=== PATIENT | female | born 1990 | race Caucasian/White ===

== ENCOUNTER → 2019-08-16 | Outpatient (CLI) | payer OTHER ==
[2019-08-16 12:00] LABS: BASOPHILS ABSOLUTE AUTO 0.06 K/mm3 (0.00-0.23); BASOPHILS PERCENT AUTO 1 % (0-2); EOSINOPHILS ABSOLUTE AUTO 0.16 K/mm3 (0.00-0.68); EOSINOPHILS PERCENT AUTO 1 % (0-6); Hemoglobin 14.4 g/dL (11.5-16.0); IMMATURE GRAN ABSOLUTE AUTO 0.05 K/mm3 (0.00-0.10); IMMATURE GRAN PERCENT AUTO 0 % (0-1); LYMPHOCYTES ABSOLUTE AUTO 3.64 K/mm3 (0.84-5.20); LYMPHOCYTES PERCENT AUTO 30 % (21-46); MONOCYTES ABSOLUTE AUTO 0.58 K/mm3 (0.16-1.47); MONOCYTES PERCENT AUTO 5 % (4-13); Mean Corpuscular HGB 29.8 pg (26.0-34.0); Mean Corpuscular HGB Conc 34.3 g/dL (31.5-36.5); Mean Corpuscular Volume 87 fL (80-100); Mean Platelet Volume 10.7 fL (9.1-12.4); NEUTROPHILS ABSOLUTE AUTO 7.51 K/mm3 (1.96-9.15); NEUTROPHILS PERCENT AUTO 63 % (41-73); Platelet Count 370 K/mm3 (150-400); RDW Coefficient Variation 12.3 % (11.7-14.2); RDW Standard Deviation 38.9 fL (35.1-46.3); Red Blood Cell Count 4.83 M/mm3 (3.80-5.20)
[2019-08-16 12:04] LABS: Anion Gap 9 mmol/L (6-16); Blood Urea Nitrogen 14 mg/dL (8-24); Bun/Creatinine Ratio 17.9 (12.0-20.0); CO2, Blood 27 mmol/L (21-32); Calcium, Blood 9.7 mg/dL (8.5-10.1); Chloride, Blood 98 mmol/L (98-108); Creatinine, Blood 0.78 mg/dL (0.40-1.00); Glomerular Filtration Rate >60 (60-); Glucose, Blood 318 mg/dL (70-99); Sodium, Blood 134 mmol/L (136-145)
== END | disposition home or self-care (01) ==
LOC: LAB EV 11:56 → LAB SHORT 11:56
PROVIDERS: Family Medicine
DX: R07.81 Pleurodynia (principal)
CPT/HCPCS: 80048; 85025; 85379

== ENCOUNTER 2019-09-06 04:05 | Emergency (ER) | payer OTHER ==
[~2019-09-06] VITALS: Ht 162.6 cm; Wt 81.7 kg
[2019-09-06] MEDS ORDERED: LEVSOD25 PO (04:27)
[2019-09-06] MEDS ORDERED: ATOR10 PO (04:28)
[2019-09-06] MEDS ORDERED: ARIP10 PO (04:28)
[2019-09-06] MEDS ORDERED: BUPR75 PO (04:28)
[2019-09-06] MEDS ORDERED: METF500 PO (04:28)
[2019-09-06] MEDS ORDERED: HYDHCL25 PO (04:29)
[2019-09-06] MEDS ORDERED: INSDET100 (04:30)
[2019-09-06] MEDS ORDERED: Esgic Tablet1 EACH PO (04:42)
[2019-09-06] MEDS ORDERED: PROM25 PO (04:42)
== END 2019-09-06 04:51 | disposition home or self-care (01) ==
LOC: ER 04:05
DX: G43.909 Migraine, unspecified, not intractable, without status migrainosus (principal); E11.9 Type 2 diabetes mellitus without complications; E03.9 Hypothyroidism, unspecified; F32.9 Major depressive disorder, single episode, unspecified; F41.9 Anxiety disorder, unspecified; F17.200 Nicotine dependence, unspecified, uncomplicated; Z79.899 Other long term (current) drug therapy; Z79.4 Long term (current) use of insulin
CPT/HCPCS: 99283

== ENCOUNTER 2019-12-13 16:02 | Emergency (ER) | payer OTHER ==
[~2019-12-13] VITALS: Ht 162.6 cm; Wt 81.7 kg
[~2019-12-13 16:02] MED LIST: ARIP10 PO; ATOR10 PO; BUPR75 PO; Esgic Tablet1 EACH PO; HYDHCL25 PO; LEVEMIR100 UNIT/1 SC; LEVSOD25 PO; METF500 PO; PROM25 PO
[2019-12-13 16:33] LABS: Source, Urine Clean Catch
[2019-12-13 16:39] LABS: Hemoglobin 15.4 g/dL (11.5-16.0); Mean Corpuscular HGB 30.7 pg (26.0-34.0); Mean Corpuscular HGB Conc 34.2 g/dL (31.5-36.5); Mean Corpuscular Volume 90 fL (80-100); Mean Platelet Volume 10.5 fL (9.1-12.4); Platelet Count 416 K/mm3 (150-400); RDW Standard Deviation 39.4 fL (35.1-46.3); Red Blood Cell Count 5.02 M/mm3 (3.80-5.20); White Blood Cell Count 16.66 K/mm3 (4.00-11.30)
[2019-12-13 16:40] LABS: Bilirubin, Urine Neg (Neg); Blood, Urine 1+ (Neg); Glucose Qualitative, Urine 4+ (Neg); Ketones, Urine 3+ (Neg); Leukocyte Esterase, Urine Neg (Neg); Nitrite, Urine Neg (Neg); Protein, Urine 2+ (Neg); Urobilinogen, Urine NORM (Normal)
[2019-12-13 16:42] LABS: Appearance, Urine Clear (Clear); Color, Urine Yellow (P-Yellow)
[2019-12-13 16:50] LABS: Bacteria Few /hpf; Mucus Mod (0-Heavy); Squamous Epithelial Cells Many /hpf (Few); White Blood Cells, Urine Not Seen /hpf (0-5)
[2019-12-13 16:59] LABS: Alanine Aminotransfer (ALT/SGP 35 U/L (12-78); Albumin, Blood 3.9 g/dL (3.4-5.0); Albumin/Globulin Ratio 0.9 (0.8-1.8); Alk Phos 107 U/L (50-136); Anion Gap 7 mmol/L (6-16); Aspartate Aminotrans (AST/SGOT 25 U/L (12-37); Bilirubin, Total 0.4 mg/dL (0.1-1.0); Blood Urea Nitrogen 13 mg/dL (8-24); Bun/Creatinine Ratio 20.2 (12.0-20.0); CO2, Blood 27 mmol/L (21-32); Calcium, Blood 9.2 mg/dL (8.5-10.1); Chloride, Blood 97 mmol/L (98-108); Creatinine, Blood 0.64 mg/dL (0.40-1.00); Globulin, Blood 4.5 g/dL (2.2-4.0); Glomerular Filtration Rate >60 (60-); Glucose, Blood 383 mg/dL (70-99); Potassium, Blood 3.3 mmol/L (3.5-5.5); Sodium, Blood 131 mmol/L (136-145); Total Protein, Blood 8.4 g/dL (6.4-8.2)
[2019-12-13 17:03] LABS: BAND PERCENT MAN 1 % (0-8); BASOPHILS PERCENT MAN 0 % (0-2); EOSINOPHILS ABSOLUTE MAN 0.33 K/mm3 (0.00-0.68); EOSINOPHILS PERCENT MAN 2 % (0-6); LYMPHOCYTES ABSOLUTE MAN 4.99 K/mm3 (0.84-5.20); LYMPHOCYTES PERCENT MAN 30 % (21-46); MONOCYTES ABSOLUTE MAN 0.33 K/mm3 (0.16-1.47); MONOCYTES PERCENT MAN 2 % (4-13); NEUTROPHILS ABSOLUTE MAN 10.99 K/mm3 (1.96-9.15); SEG NEUTROPHILS PERCENT MAN 65 % (41-73); TOTAL CELLS COUNTED 100
[2019-12-13] MEDS ORDERED: HUMALOG KW100 UNIT/1 SC (18:33)
[2019-12-13] MEDS ORDERED: ONDA4ODT MM (20:15)
== END 2019-12-13 20:22 | disposition home or self-care (01) ==
LOC: ER 16:02
PROVIDERS: Physician Assistant
DX: E11.65 Type 2 diabetes mellitus with hyperglycemia (principal); Z88.5 Allergy status to narcotic agent; Z79.4 Long term (current) use of insulin; Z79.899 Other long term (current) drug therapy; E03.9 Hypothyroidism, unspecified; E78.00 Pure hypercholesterolemia, unspecified; F32.9 Major depressive disorder, single episode, unspecified; F41.9 Anxiety disorder, unspecified; F17.290 Nicotine dependence, other tobacco product, uncomplicated
CPT/HCPCS: 36415; 80053; 81001; 81025; 83690; 85025; 96374; 99284-25; J2405

== ENCOUNTER 2020-01-25 15:46 | Emergency (ER) | payer OTHER ==
[~2020-01-25] VITALS: Ht 162.6 cm; Wt 81.7 kg
[~2020-01-25 15:46] MED LIST changes: +HUMALOG KW100 UNIT/1 SC; +ONDA4ODT MM
[2020-01-25 16:22] LABS: BASOPHILS ABSOLUTE AUTO 0.09 K/mm3 (0.00-0.23); BASOPHILS PERCENT AUTO 1 % (0-2); EOSINOPHILS PERCENT AUTO 1 % (0-6); Hemoglobin 15.3 g/dL (11.5-16.0); IMMATURE GRAN ABSOLUTE AUTO 0.06 K/mm3 (0.00-0.10); IMMATURE GRAN PERCENT AUTO 0 % (0-1); LYMPHOCYTES ABSOLUTE AUTO 3.94 K/mm3 (0.84-5.20); LYMPHOCYTES PERCENT AUTO 28 % (21-46); MONOCYTES ABSOLUTE AUTO 0.74 K/mm3 (0.16-1.47); MONOCYTES PERCENT AUTO 5 % (4-13); Mean Corpuscular HGB 30.7 pg (26.0-34.0); Mean Corpuscular Volume 90 fL (80-100); NEUTROPHILS ABSOLUTE AUTO 8.94 K/mm3 (1.96-9.15); NEUTROPHILS PERCENT AUTO 65 % (41-73); Platelet Count 351 K/mm3 (150-400); RDW Standard Deviation 39.4 fL (35.1-46.3); Red Blood Cell Count 4.98 M/mm3 (3.80-5.20); White Blood Cell Count 13.87 K/mm3 (4.00-11.30)
[2020-01-25 16:43] LABS: Beta-hydroxybutyrate 2.1 mg/dL (0.2-2.8)
[2020-01-25 16:45] LABS: Alanine Aminotransfer (ALT/SGP 34 U/L (12-78); Albumin, Blood 4.4 g/dL (3.4-5.0); Alk Phos 114 U/L (50-136); Anion Gap 7 mmol/L (6-16); Aspartate Aminotrans (AST/SGOT 15 U/L (12-37); Bilirubin, Total 0.4 mg/dL (0.1-1.0); Blood Urea Nitrogen 14 mg/dL (8-24); Bun/Creatinine Ratio 20.3 (12.0-20.0); CO2, Blood 26 mmol/L (21-32); Calcium, Blood 10.1 mg/dL (8.5-10.1); Chloride, Blood 100 mmol/L (98-108); Creatinine, Blood 0.69 mg/dL (0.40-1.00); Globulin, Blood 4.5 g/dL (2.2-4.0); Glomerular Filtration Rate >60 (60-); Glucose, Blood 391 mg/dL (70-99); Sodium, Blood 133 mmol/L (136-145); Total Protein, Blood 8.9 g/dL (6.4-8.2)
[2020-01-25] MEDS ORDERED: BUPROPION XL150 M1 PO (17:45)
== END 2020-01-25 18:31 | disposition left against medical advice (07) ==
LOC: ER 15:46
PROVIDERS: Physician Assistant
DX: E11.65 Type 2 diabetes mellitus with hyperglycemia (principal); E03.9 Hypothyroidism, unspecified; E78.00 Pure hypercholesterolemia, unspecified; F32.9 Major depressive disorder, single episode, unspecified; F41.9 Anxiety disorder, unspecified; F17.290 Nicotine dependence, other tobacco product, uncomplicated; Z53.20 Procedure and treatment not carried out because of patient's decision for unspecified reasons; Z79.4 Long term (current) use of insulin; Z88.5 Allergy status to narcotic agent; Z79.899 Other long term (current) drug therapy
CPT/HCPCS: 36415; 71046; 80053; 82010; 82947; 85025; 93005; 93010; 96361; 96374; 99285-25; J1815; J2405; J7030

== ENCOUNTER → 2020-01-31 | Outpatient (CLI) | payer OTHER ==
[~2020-01-31] MED LIST changes: +BUPROPION XL150 M1 PO
[2020-01-31 15:03] LABS: BASOPHILS ABSOLUTE AUTO 0.07 K/mm3 (0.00-0.23); BASOPHILS PERCENT AUTO 1 % (0-2); EOSINOPHILS ABSOLUTE AUTO 0.15 K/mm3 (0.00-0.68); EOSINOPHILS PERCENT AUTO 1 % (0-6); Hematocrit 42.7 % (33.0-51.0); Hemoglobin 14.8 g/dL (11.5-16.0); IMMATURE GRAN ABSOLUTE AUTO 0.04 K/mm3 (0.00-0.10); IMMATURE GRAN PERCENT AUTO 0 % (0-1); LYMPHOCYTES PERCENT AUTO 24 % (21-46); MONOCYTES ABSOLUTE AUTO 0.63 K/mm3 (0.16-1.47); MONOCYTES PERCENT AUTO 5 % (4-13); Mean Corpuscular HGB 30.9 pg (26.0-34.0); Mean Corpuscular HGB Conc 34.7 g/dL (31.5-36.5); Mean Corpuscular Volume 89 fL (80-100); NEUTROPHILS ABSOLUTE AUTO 7.91 K/mm3 (1.96-9.15); NEUTROPHILS PERCENT AUTO 68 % (41-73); Platelet Count 343 K/mm3 (150-400); RDW Coefficient Variation 12.3 % (11.7-14.2); RDW Standard Deviation 40.4 fL (35.1-46.3); Red Blood Cell Count 4.79 M/mm3 (3.80-5.20)
[2020-01-31 15:07] LABS: Anion Gap 10 mmol/L (6-16); Blood Urea Nitrogen 12 mg/dL (8-24); Bun/Creatinine Ratio 11.7 (12.0-20.0); CO2, Blood 26 mmol/L (21-32); Calcium, Blood 9.6 mg/dL (8.5-10.1); Chloride, Blood 93 mmol/L (98-108); Creatinine, Blood 1.03 mg/dL (0.40-1.00); Glomerular Filtration Rate >60 (60-); Glucose, Blood 435 mg/dL (70-99); Potassium, Blood 3.5 mmol/L (3.5-5.5); Sodium, Blood 129 mmol/L (136-145)
== END | disposition home or self-care (01) ==
LOC: LAB EV 14:57 → LAB SHORT 14:57
PROVIDERS: Family Medicine
DX: E11.65 Type 2 diabetes mellitus with hyperglycemia (principal)
CPT/HCPCS: 80048; 85025

== ENCOUNTER → 2020-02-29 | Outpatient (CLI) | payer OTHER ==
[2020-02-29 08:10] LABS: BASOPHILS ABSOLUTE AUTO 0.07 K/mm3 (0.00-0.23); BASOPHILS PERCENT AUTO 1 % (0-2); EOSINOPHILS ABSOLUTE AUTO 0.13 K/mm3 (0.00-0.68); EOSINOPHILS PERCENT AUTO 1 % (0-6); Hematocrit 42.4 % (33.0-51.0); Hemoglobin 14.6 g/dL (11.5-16.0); IMMATURE GRAN ABSOLUTE AUTO 0.08 K/mm3 (0.00-0.10); IMMATURE GRAN PERCENT AUTO 1 % (0-1); LYMPHOCYTES ABSOLUTE AUTO 2.91 K/mm3 (0.84-5.20); LYMPHOCYTES PERCENT AUTO 25 % (21-46); MONOCYTES ABSOLUTE AUTO 0.63 K/mm3 (0.16-1.47); MONOCYTES PERCENT AUTO 5 % (4-13); Mean Corpuscular HGB 30.8 pg (26.0-34.0); Mean Corpuscular HGB Conc 34.4 g/dL (31.5-36.5); Mean Corpuscular Volume 90 fL (80-100); Mean Platelet Volume 10.6 fL (9.1-12.4); NEUTROPHILS ABSOLUTE AUTO 7.97 K/mm3 (1.96-9.15); NEUTROPHILS PERCENT AUTO 68 % (41-73); Platelet Count 335 K/mm3 (150-400); RDW Coefficient Variation 12.5 % (11.7-14.2); RDW Standard Deviation 41.1 fL (35.1-46.3); Red Blood Cell Count 4.74 M/mm3 (3.80-5.20); White Blood Cell Count 11.79 K/mm3 (4.00-11.30)
[2020-02-29 08:21] LABS: Alanine Aminotransfer (ALT/SGP 31 U/L (12-78); Albumin, Blood 4.1 g/dL (3.4-5.0); Albumin/Globulin Ratio 0.9 (0.8-1.8); Alk Phos 127 U/L (40-126); Anion Gap 10 mmol/L (6-16); Aspartate Aminotrans (AST/SGOT 15 U/L (12-37); Bilirubin, Total 0.5 mg/dL (0.1-1.0); Blood Urea Nitrogen 13 mg/dL (8-24); Bun/Creatinine Ratio 13.3 (12.0-20.0); CO2, Blood 27 mmol/L (21-32); Calcium, Blood 9.1 mg/dL (8.5-10.1); Chloride, Blood 95 mmol/L (98-108); Creatinine, Blood 0.98 mg/dL (0.40-1.00); Globulin, Blood 4.5 g/dL (2.2-4.0); Glomerular Filtration Rate >60 (60-); Glucose, Blood 349 mg/dL (70-99); Potassium, Blood 4.2 mmol/L (3.5-5.5); Sodium, Blood 132 mmol/L (136-145); Total Protein, Blood 8.6 g/dL (6.4-8.2)
== END | disposition home or self-care (01) ==
LOC: LAB EV 08:06 → LAB SHORT 08:06
PROVIDERS: Physician Assistant Medical
DX: R10.84 Generalized abdominal pain (principal)
CPT/HCPCS: 80053; 85025

== ENCOUNTER 2020-04-16 09:28 | Emergency (ER) | payer OTHER ==
[~2020-04-16] VITALS: Ht 162.6 cm; Wt 86.2 kg
[2020-04-16 10:04] LABS: BASOPHILS ABSOLUTE AUTO 0.08 K/mm3 (0.00-0.23); BASOPHILS PERCENT AUTO 1 % (0-2); EOSINOPHILS ABSOLUTE AUTO 0.13 K/mm3 (0.00-0.68); EOSINOPHILS PERCENT AUTO 1 % (0-6); Hematocrit 45.3 % (33.0-51.0); IMMATURE GRAN ABSOLUTE AUTO 0.04 K/mm3 (0.00-0.10); IMMATURE GRAN PERCENT AUTO 0 % (0-1); LYMPHOCYTES ABSOLUTE AUTO 3.04 K/mm3 (0.84-5.20); LYMPHOCYTES PERCENT AUTO 26 % (21-46); MONOCYTES PERCENT AUTO 4 % (4-13); Mean Corpuscular HGB 30.7 pg (26.0-34.0); Mean Corpuscular HGB Conc 33.1 g/dL (31.5-36.5); Mean Corpuscular Volume 93 fL (80-100); Mean Platelet Volume 10.9 fL (9.1-12.4); NEUTROPHILS ABSOLUTE AUTO 7.78 K/mm3 (1.96-9.15); NEUTROPHILS PERCENT AUTO 67 % (41-73); Platelet Count 405 K/mm3 (150-400); RDW Coefficient Variation 12.1 % (11.7-14.2); RDW Standard Deviation 41.7 fL (35.1-46.3); Red Blood Cell Count 4.88 M/mm3 (3.80-5.20); White Blood Cell Count 11.57 K/mm3 (4.00-11.30)
[2020-04-16 10:15] LABS: Alanine Aminotransfer (ALT/SGP 27 U/L (12-78); Albumin, Blood 4.1 g/dL (3.4-5.0); Alk Phos 118 U/L (50-136); Anion Gap 9 mmol/L (6-16); Aspartate Aminotrans (AST/SGOT 19 U/L (12-37); Bilirubin, Total 0.2 mg/dL (0.1-1.0); Blood Urea Nitrogen 15 mg/dL (8-24); Bun/Creatinine Ratio 23.7 (12.0-20.0); CO2, Blood 23 mmol/L (21-32); Calcium, Blood 9.3 mg/dL (8.5-10.1); Chloride, Blood 102 mmol/L (98-108); Creatinine, Blood 0.63 mg/dL (0.40-1.00); Globulin, Blood 4.1 g/dL (2.2-4.0); Glomerular Filtration Rate >60 (60-); Glucose, Blood 434 mg/dL (70-99); Potassium, Blood 3.5 mmol/L (3.5-5.5); Sodium, Blood 134 mmol/L (136-145); Total Protein, Blood 8.2 g/dL (6.4-8.2)
[2020-04-16] MEDS ORDERED: METFORMIN HCL500 M3 PO (11:39)
[2020-04-16] MEDS ORDERED: LEVOTHYROXINE112 MCG PO (11:39)
[2020-04-16] MEDS ORDERED: ABILIFY5 MG PO (11:40)
== END 2020-04-16 12:15 | disposition home or self-care (01) ==
LOC: ER 09:28
PROVIDERS: Physician Assistant
DX: E11.65 Type 2 diabetes mellitus with hyperglycemia (principal); E03.9 Hypothyroidism, unspecified; E78.00 Pure hypercholesterolemia, unspecified; F32.9 Major depressive disorder, single episode, unspecified; F41.9 Anxiety disorder, unspecified; F17.290 Nicotine dependence, other tobacco product, uncomplicated; Z79.4 Long term (current) use of insulin; Z88.5 Allergy status to narcotic agent; Z79.899 Other long term (current) drug therapy
CPT/HCPCS: 36415; 80053; 81000; 81025; 82947; 85025; 96360; 96361; 99284-25; J7030

== ENCOUNTER 2020-05-14 07:42 | Emergency (ER) | payer OTHER ==
[~2020-05-14] VITALS: Ht 162.6 cm; Wt 86.2 kg
[~2020-05-14 07:42] MED LIST changes: +ABILIFY5 MG PO; +LEVOTHYROXINE112 MCG PO; +METFORMIN HCL500 M3 PO
[2020-05-14] MEDS ORDERED: LIDO700A20 TOP (09:06)
[2020-05-14] MEDS ORDERED: OXYC5 PO (09:06)
[2020-05-14] MEDS ORDERED: CYCL10 PO (09:06)
== END 2020-05-14 09:28 | disposition home or self-care (01) ==
LOC: ER 07:42
DX: M54.5 Low back pain (principal); E11.9 Type 2 diabetes mellitus without complications; E03.9 Hypothyroidism, unspecified; E78.00 Pure hypercholesterolemia, unspecified; F17.210 Nicotine dependence, cigarettes, uncomplicated; Z79.4 Long term (current) use of insulin; Z79.899 Other long term (current) drug therapy; X50.9XXA Other and unspecified overexertion or strenuous movements or postures, initial encounter; Y99.0 Civilian activity done for income or pay
CPT/HCPCS: 96372; 99283; A9270; J1885

== ENCOUNTER 2020-07-03 13:55 | Emergency (ER) | payer OTHER ==
[~2020-07-03] VITALS: Ht 162.6 cm; Wt 86.2 kg
[~2020-07-03 13:55] MED LIST changes: +CYCL10 PO; +LIDO700A20 TOP; +OXYC5 PO
[2020-07-03 15:40] LABS: Hematocrit 48.6 % (33.0-51.0); Hemoglobin 16.7 g/dL (11.5-16.0); Mean Corpuscular HGB 30.5 pg (26.0-34.0); Mean Corpuscular HGB Conc 34.4 g/dL (31.5-36.5); Mean Corpuscular Volume 89 fL (80-100); Mean Platelet Volume 10.9 fL (9.1-12.4); Platelet Count 384 K/mm3 (150-400); RDW Coefficient Variation 11.8 % (11.7-14.2); RDW Standard Deviation 38.5 fL (35.1-46.3); Red Blood Cell Count 5.47 M/mm3 (3.80-5.20); White Blood Cell Count 15.64 K/mm3 (4.00-11.30)
[2020-07-03 16:03] LABS: BASOPHILS PERCENT MAN 0 % (0-2); EOSINOPHILS ABSOLUTE MAN 0.46 K/mm3 (0.00-0.68); EOSINOPHILS PERCENT MAN 3 % (0-6); LYMPHOCYTES ABSOLUTE MAN 4.06 K/mm3 (0.84-5.20); LYMPHOCYTES PERCENT MAN 26 % (21-46); MONOCYTES ABSOLUTE MAN 0.31 K/mm3 (0.16-1.47); MONOCYTES PERCENT MAN 2 % (4-13); NEUTROPHILS ABSOLUTE MAN 10.79 K/mm3 (1.96-9.15); SEG NEUTROPHILS PERCENT MAN 69 % (41-73); TOTAL CELLS COUNTED 100
[2020-07-03 16:11] LABS: Alanine Aminotransfer (ALT/SGP 36 U/L (12-78); Albumin/Globulin Ratio 0.8 (0.8-1.8); Alk Phos 144 U/L (50-136); Anion Gap 8 mmol/L (6-16); Aspartate Aminotrans (AST/SGOT 24 U/L (12-37); Bilirubin, Total 0.3 mg/dL (0.1-1.0); Blood Urea Nitrogen 9 mg/dL (8-24); Bun/Creatinine Ratio 15.7 (12.0-20.0); CO2, Blood 26 mmol/L (21-32); Calcium, Blood 9.9 mg/dL (8.5-10.1); Chloride, Blood 102 mmol/L (98-108); Creatinine, Blood 0.58 mg/dL (0.40-1.00); Globulin, Blood 5.1 g/dL (2.2-4.0); Glomerular Filtration Rate >60 (60-); Glucose, Blood 312 mg/dL (70-99); Potassium, Blood 3.8 mmol/L (3.5-5.5); Sodium, Blood 136 mmol/L (136-145); Total Protein, Blood 9.1 g/dL (6.4-8.2)
[2020-07-03 16:42] LABS: Source, Urine Clean Catch
[2020-07-03 16:45] LABS: Appearance, Urine Clear (Clear); Bilirubin, Urine Neg (Neg); Blood, Urine Neg (Neg); Color, Urine Yellow (P-Yellow); Glucose Qualitative, Urine 4+ (Neg); Ketones, Urine Neg (Neg); Leukocyte Esterase, Urine Neg (Neg); Nitrite, Urine Neg (Neg); Protein, Urine Neg (Neg); Specific Gravity, Urine 1.015 (1.003-1.022); Urobilinogen, Urine NORM (Normal)
== END 2020-07-03 17:50 | disposition left against medical advice (07) ==
LOC: ER 13:55
PROVIDERS: Emergency Medicine; Physician Assistant
DX: E11.65 Type 2 diabetes mellitus with hyperglycemia (principal); Z79.4 Long term (current) use of insulin; Z53.21 Procedure and treatment not carried out due to patient leaving prior to being seen by health care provider; Z79.899 Other long term (current) drug therapy
CPT/HCPCS: 36415; 80053; 81003; 81025; 85025; 93005; 93010; 99283-25

== ENCOUNTER → 2023-08-29 | Outpatient (CLI) | payer OTHER | END | disposition home or self-care (01) | LOC: LAB EV 13:22 → LAB SHORT 13:22 | DX: E03.9 Hypothyroidism, unspecified (principal); E10.3599 Type 1 diabetes mellitus with proliferative diabetic retinopathy without macular edema, unspecified eye; R42 Dizziness and giddiness ==

== ENCOUNTER → 2023-10-15 | Outpatient (CLI) | payer OTHER ==
[2023-10-17 23:38] LABS: C. TRACHOMATIS BY TMA,THINPREP Negative (Negative); N. GONORRHOEAE BY TMA,THINPREP Negative (Negative); SPECIMEN SOURCE Vaginal
== END | disposition home or self-care (01) ==
LOC: LAB 10:37 → LAB SHORT 10:37
PROVIDERS: Advanced Practice Midwife
DX: Z01.419 Encounter for gynecological examination (general) (routine) without abnormal findings (principal); Z11.3 Encounter for screening for infections with a predominantly sexual mode of transmission
CPT/HCPCS: 87491; 87591

== ENCOUNTER → 2024-01-26 | Outpatient (CLI) | payer OTHER ==
[2024-01-26 12:06] LABS: BASOPHILS ABSOLUTE AUTO 0.11 K/mm3 (0.00-0.23); BASOPHILS PERCENT AUTO 1 % (0-2); EOSINOPHILS ABSOLUTE AUTO 0.32 K/mm3 (0.00-0.68); EOSINOPHILS PERCENT AUTO 4 % (0-6); Hematocrit 40.8 % (33.0-51.0); Hemoglobin 13.8 g/dL (11.5-16.0); IMMATURE GRAN ABSOLUTE AUTO 0.02 K/mm3 (0.00-0.10); IMMATURE GRAN PERCENT AUTO 0 % (0-1); LYMPHOCYTES ABSOLUTE AUTO 3.76 K/mm3 (0.84-5.20); LYMPHOCYTES PERCENT AUTO 41 % (21-46); MONOCYTES ABSOLUTE AUTO 0.48 K/mm3 (0.16-1.47); MONOCYTES PERCENT AUTO 5 % (4-13); Mean Corpuscular HGB 29.7 pg (26.0-34.0); Mean Corpuscular HGB Conc 33.8 g/dL (31.5-36.5); Mean Corpuscular Volume 88 fL (80-100); Mean Platelet Volume 11.3 fL (9.1-12.4); NEUTROPHILS ABSOLUTE AUTO 4.42 K/mm3 (1.96-9.15); NEUTROPHILS PERCENT AUTO 49 % (41-73); Platelet Count 355 K/mm3 (150-400); RDW Coefficient Variation 13.8 % (11.7-14.2); RDW Standard Deviation 43.9 fL (35.1-46.3); Red Blood Cell Count 4.64 M/mm3 (3.80-5.20); White Blood Cell Count 9.11 K/mm3 (4.00-11.30)
[2024-01-26 12:30] LABS: Alanine Aminotransfer (ALT/SGP 25 U/L (12-78); Albumin, Blood 3.7 g/dL (3.4-5.0); Albumin/Globulin Ratio 0.9 (0.8-1.8); Alk Phos 88 U/L (40-126); Anion Gap 15 mmol/L (3-11); Aspartate Aminotrans (AST/SGOT 26 U/L (12-37); Bilirubin, Total 0.3 mg/dL (0.1-1.0); Blood Urea Nitrogen 7 mg/dL (8-24); Bun/Creatinine Ratio 7.8 (12.0-20.0); CO2, Blood 28 mmol/L (21-32); Calcium, Blood 9.1 mg/dL (8.5-10.1); Chloride, Blood 98 mmol/L (98-108); Globulin, Blood 4.3 g/dL (2.2-4.0); Glomerular Filtration Rate 88 (60-); Glucose, Blood 238 mg/dL (70-99); Potassium, Blood 3.6 mmol/L (3.5-5.5); Sodium, Blood 137 mmol/L (136-145)
[2024-01-26 12:31] LABS: Thyroid Stimulating Hormone >100.000 uIU/mL (0.360-4.800)
== END ==
LOC: LAB SHORT 12:01 → LAB 12:01
PROVIDERS: Physician Assistant
DX: E10.65 Type 1 diabetes mellitus with hyperglycemia (principal); E06.3 Autoimmune thyroiditis
CPT/HCPCS: 80053; 82010; 83036; 84443; 85025

== ENCOUNTER → 2024-03-03 | Outpatient (CLI) | payer OTHER | LOC: LAB SHORT 15:10 → LAB 15:10 | DX: N39.0 Urinary tract infection, site not specified (principal) | CPT/HCPCS: 87077; 87086; 87186 ==

== ENCOUNTER 2024-04-08 18:37 | Inpatient (IN) | payer OTHER ==
[~2024-04-08] VITALS: Ht 162.6 cm; Wt 74.4 kg
[~2024-04-08 18:37] MED LIST changes: -ARIPIPRAZOLE10 M4 PO; -CEPH500 PO; -DESVENLAFAXINE50 M3 PO; -DIVA500EC PO; -VISBIOME 112.51 EACH PO
[2024-04-08] MEDS ORDERED: NS 1,000 ML IV SCH (19:00)
[2024-04-08] MEDS ORDERED: Ketorolac Tromethamine 30mg Vial IV ONE (19:35)
[2024-04-08 19:42] LABS: BASOPHILS ABSOLUTE AUTO 0.08 K/mm3 (0.00-0.23); BASOPHILS PERCENT AUTO 0 % (0-2); EOSINOPHILS ABSOLUTE AUTO 0.06 K/mm3 (0.00-0.68); EOSINOPHILS PERCENT AUTO 0 % (0-6); Hematocrit 30.5 % (33.0-51.0); Hemoglobin 10.4 g/dL (11.5-16.0); IMMATURE GRAN ABSOLUTE AUTO 0.09 K/mm3 (0.00-0.10); IMMATURE GRAN PERCENT AUTO 1 % (0-1); LYMPHOCYTES ABSOLUTE AUTO 3.18 K/mm3 (0.84-5.20); LYMPHOCYTES PERCENT AUTO 17 % (21-46); MONOCYTES PERCENT AUTO 9 % (4-13); Mean Corpuscular HGB 30.5 pg (26.0-34.0); Mean Corpuscular HGB Conc 34.1 g/dL (31.5-36.5); Mean Corpuscular Volume 89 fL (80-100); Mean Platelet Volume 10.9 fL (9.1-12.4); NEUTROPHILS ABSOLUTE AUTO 13.37 K/mm3 (1.96-9.15); NEUTROPHILS PERCENT AUTO 73 % (41-73); Platelet Count 362 K/mm3 (150-400); RDW Coefficient Variation 11.9 % (11.7-14.2); RDW Standard Deviation 38.9 fL (35.1-46.3); Red Blood Cell Count 3.41 M/mm3 (3.80-5.20); White Blood Cell Count 18.38 K/mm3 (4.00-11.30)
[2024-04-08 20:07] LABS: Albumin, Blood 2.6 g/dL (3.4-5.0); Albumin/Globulin Ratio 0.6 (0.8-1.8); Bilirubin, Total 0.5 mg/dL (0.1-1.0); Bun/Creatinine Ratio 13.7 (12.0-20.0); Calcium, Blood 7.9 mg/dL (8.5-10.1); Creatinine, Blood 0.66 mg/dL (0.40-1.00); Globulin, Blood 4.2 g/dL (2.2-4.0); Potassium, Blood 3.4 mmol/L (3.5-5.5); Total Protein, Blood 6.8 g/dL (6.4-8.2)
[2024-04-08] MEDS ORDERED: Ondansetron HCl 2 MG / ML 2ML Vial IV PRN (21:25)
[2024-04-08] MEDS ORDERED: Lactated Ringer's 1,000 ML IV SCH (21:25)
[2024-04-08] MEDS ORDERED: FLU VACC TS2024-25(6MOS UP)/PF 45 MCG/0.5 ML SYRINGE IM SCH (21:25)
[2024-04-08 21:34] LABS: Source, Urine Clean Catch
[2024-04-08 21:53] LABS: Bilirubin, Urine Neg (Neg); Blood, Urine 1+ (Neg); Glucose Qualitative, Urine 3+ (Neg); Ketones, Urine 3+ (Neg); Leukocyte Esterase, Urine Neg (Neg); Nitrite, Urine Neg (Neg); Protein, Urine 2+ (Neg); Urobilinogen, Urine NORM (Normal)
[2024-04-08 21:55] LABS: Appearance, Urine Clear (Clear); Color, Urine Yellow (P-Yellow)
[2024-04-08 21:56] LABS: Bacteria Mod /hpf; Red Blood Cells, Urine 0-2 /hpf (0-2); Squamous Epithelial Cells Many /hpf (Few)
[2024-04-08] MEDS ORDERED: CefTRIAXone Sodium 1,000 MG in NS 100 ML IV SCH (22:00)
[2024-04-08] MEDS ORDERED: Potassium Chloride 20 MEQ TabCR PO ONE (22:00)
[2024-04-08] MEDS ORDERED: ARIPIPRAZOLE10 M4 PO (22:07)
[2024-04-08 22:23] LABS: Hematocrit 28.1 % (33.0-51.0); Hemoglobin 9.7 g/dL (11.5-16.0)
[2024-04-09] VITALS (34 sets, daily range): BP systolic 81–106; BP diastolic 54–74
[2024-04-09] MEDS ORDERED: DESVENLAFAXINE50 M3 PO (05:03)
[2024-04-09] MEDS ORDERED: DIVA500EC PO (05:06)
[2024-04-09 05:44] LABS: Albumin, Blood 2.4 g/dL (3.4-5.0); Albumin/Globulin Ratio 0.6 (0.8-1.8); Bilirubin, Total 0.3 mg/dL (0.1-1.0); Bun/Creatinine Ratio 14.1 (12.0-20.0); Calcium, Blood 7.8 mg/dL (8.5-10.1); Creatinine, Blood 0.57 mg/dL (0.40-1.00); Potassium, Blood 3.7 mmol/L (3.5-5.5); Total Protein, Blood 6.4 g/dL (6.4-8.2)
[2024-04-09 05:51] LABS: BASOPHILS ABSOLUTE AUTO 0.06 K/mm3 (0.00-0.23); BASOPHILS PERCENT AUTO 0 % (0-2); EOSINOPHILS ABSOLUTE AUTO 0.15 K/mm3 (0.00-0.68); EOSINOPHILS PERCENT AUTO 1 % (0-6); Hematocrit 28.7 % (33.0-51.0); Hemoglobin 9.9 g/dL (11.5-16.0); IMMATURE GRAN ABSOLUTE AUTO 0.05 K/mm3 (0.00-0.10); IMMATURE GRAN PERCENT AUTO 0 % (0-1); LYMPHOCYTES ABSOLUTE AUTO 2.87 K/mm3 (0.84-5.20); LYMPHOCYTES PERCENT AUTO 20 % (21-46); MONOCYTES ABSOLUTE AUTO 1.27 K/mm3 (0.16-1.47); MONOCYTES PERCENT AUTO 9 % (4-13); Mean Corpuscular HGB 30.4 pg (26.0-34.0); Mean Corpuscular HGB Conc 34.5 g/dL (31.5-36.5); Mean Corpuscular Volume 88 fL (80-100); Mean Platelet Volume 11.3 fL (9.1-12.4); NEUTROPHILS ABSOLUTE AUTO 9.65 K/mm3 (1.96-9.15); NEUTROPHILS PERCENT AUTO 69 % (41-73); Platelet Count 301 K/mm3 (150-400); RDW Standard Deviation 38.5 fL (35.1-46.3); Red Blood Cell Count 3.26 M/mm3 (3.80-5.20); White Blood Cell Count 14.05 K/mm3 (4.00-11.30)
--- NOTE | 2024-04-09 06:44 | NUR ---
PT ADMITTED TO ROOM ICU 1 FROM ED ARRIVING AT 0434. PT WAS ABLE TO STAND FROM GURNEY AND PIVOT TRANSFER TO BED. PT DENIES VERTIGO. LEVOPHED RUNNING AT 2 MCG'S/MIN WHEREAS SHE MAINTAINS MAP > 65. PT HAS BEEN UP TO TOILET AND VOIDS CONCENTRATED STRONG ODOR URINE. PT GOOD HISTORIAN. WILL CONTINUE TO MONITOR PT, AND WILL REPORT OFF TO ONCOMING RN.
--- NOTE | 2024-04-09 07:21 | NUR ---
ASSUMED CARE OF PATIENT AT APPROXIMATELY 0700. REPORT RECEIVED FROM JENIFER STUBBS. PT ASLEEP IN BED. CONTINOUS CARDIAC MONITORING IN PLACE SHOWING SR. BP 98/66 WITH MAP OF 75, LEVOPHED INFUSING AT 2 MCG/MIN. ON RA WITH O2 SATURATION OF 100%. NO ACUTE NEEDS IDENTIFIED AT THIS TIME. SEE SHIFT ASSESSMENT FOR FULL DETAILS.
[2024-04-09] MEDS ORDERED: Insulin Human Lispro 100 Units/ML 3ML Syringe SC SCH (07:30)
[2024-04-09] MEDS ORDERED: Lactobacil 2-S.Thermo-Bifido 1 1 Cap PO SCH (09:00)
[2024-04-09] MEDS ORDERED: Enoxaparin 40 MG/0.4 ML SYR SC SCH (09:00)
[2024-04-09] MEDS ORDERED: Acetaminophen 325 MG TABLET PO PRN (09:35)
[2024-04-09] MEDS ORDERED: Ketorolac Tromethamine 30mg Vial IV PRN (09:40)
[2024-04-09] MEDS ORDERED: Nicotine 14 MG PATCH TOP SCH (12:00)
[2024-04-09] MEDS ORDERED: Cyclobenzaprine HCl 10 MG Tab PO PRN (13:50)
[2024-04-09] MEDS ORDERED: Lidocaine 4% 1 Patch TOP PRN (13:55)
--- NOTE | 2024-04-09 16:55 | NUR ---
SHIFT SUMMARY PT REMAINED ALERT AND ORIENTED X 4 T/O ENTIRETY OF SHIFT. ABLE TO FOLLOW COMMANDS, MAKE PURPOSEFUL MOVEMENTS, AND MAKE NEEDS KNOWN. AFEBRILE. REPORTED ONE EPISODE OF LLQ PAIN AT 07/12. MEDICATED PER EMAR WITH GOOD BENEFIT. CONTINOUS CARDIAC MONITORING IN PLACED SHOWED SR-STACH. LEVOPHED HAS BEEN ON SB SINCE 0800. BP STABLE WITH MAP > 65. ON RA WITH O2 SATURATION > 92%. NO BM THIS SHIFT. NO N/V. ATE MOST OF BREAKFAST BUT HAD DECREASED APPETITE WITH LUNCH + DINNER. AMBULATES INDEPENDENTLY TO TOILET IN ROOM. LR INCREASED TO 125mL/HR PER HOSPITALIST, INFUSING TO RAC. PIV TO LAC PATENT. MED NO TELE STATUS. WILL CONTINUE TO MONITOR AND REPORT TO ONCOMING RN.
--- NOTE | 2024-04-09 19:34 | NUR ---
ASSUMED CARE OF PT AT 1900. REPORT RECEIVED. PT MED FLOOR STATUS AND IS MADE AWARE THAT PLAN WILL BE TO TRY TO GET HER A ROOM ON MEDICAL FLOOR SOON WHICH HAS BEEN DONE. SHE WILL BE TRANSFERRED TO ROOM 310 WHEN RN AVAILABLE TO RECEIVE REPORT. PT AWARE AND IS IN AGREEMENT. PT IN NO APPARENT DISTRESS. STATES THAT SHE FEELS "SLEEPY". WILL REVIEW CHART AND PLAN OF CARE FOR THIS PT.
--- NOTE | 2024-04-09 20:13 | NUR ---
PT TRANSFERRED TO ROOM 310 VIA WC. PT PIVOT TRANSFERS TO BED. LEAVES ICU AT 1999. REPORT GIVEN.
[2024-04-09] MEDS ORDERED: Insulin Glargine-Yfgn 100 Unit/mL 3 ML SYR SC SCH (21:00)
[2024-04-09] MEDS ORDERED: NS 250 ML IV PRN (22:05)
[2024-04-10 03:29] VITALS: BP 109/60
--- NOTE | 2024-04-10 05:10 | NUR ---
SHIFT SUMMARY PT TRANSFERED FROM ICU ABOUT 1999. ORIENTED TO ROOM. A&Ox4 AND PLEASANT. PT MEDICATED FOR PAIN AND NAUSEA PER EMAR WITH GOOD EFFECT. LR INFUSING @ 125ML/HR. CONTINUING IV ABX PER EMAR. BP SOFT BUT MAP REMAINS >70. INDEPENDENT IN ROOM. BED IN LOWEST POSITION AND CALL LIGHT IN REACH.
[2024-04-10 05:12] LABS: BASOPHILS ABSOLUTE AUTO 0.04 K/mm3 (0.00-0.23); BASOPHILS PERCENT AUTO 1 % (0-2); EOSINOPHILS ABSOLUTE AUTO 0.21 K/mm3 (0.00-0.68); EOSINOPHILS PERCENT AUTO 3 % (0-6); Hematocrit 30.5 % (33.0-51.0); Hemoglobin 10.1 g/dL (11.5-16.0); IMMATURE GRAN ABSOLUTE AUTO 0.02 K/mm3 (0.00-0.10); IMMATURE GRAN PERCENT AUTO 0 % (0-1); LYMPHOCYTES ABSOLUTE AUTO 2.02 K/mm3 (0.84-5.20); LYMPHOCYTES PERCENT AUTO 24 % (21-46); MONOCYTES PERCENT AUTO 7 % (4-13); Mean Corpuscular HGB 29.7 pg (26.0-34.0); Mean Corpuscular HGB Conc 33.1 g/dL (31.5-36.5); Mean Corpuscular Volume 90 fL (80-100); Mean Platelet Volume 10.9 fL (9.1-12.4); NEUTROPHILS ABSOLUTE AUTO 5.67 K/mm3 (1.96-9.15); NEUTROPHILS PERCENT AUTO 66 % (41-73); Platelet Count 337 K/mm3 (150-400); RDW Coefficient Variation 12.1 % (11.7-14.2); RDW Standard Deviation 39.7 fL (35.1-46.3); White Blood Cell Count 8.56 K/mm3 (4.00-11.30)
[2024-04-10 05:47] LABS: Bun/Creatinine Ratio 5.8 (12.0-20.0); Calcium, Blood 8.6 mg/dL (8.5-10.1); Creatinine, Blood 0.52 mg/dL (0.40-1.00); Potassium, Blood 3.5 mmol/L (3.5-5.5)
[2024-04-10] MEDS ORDERED: Levothyroxine Sodium 0.112 MG Tab PO SCH (06:00)
[2024-04-10 07:22] VITALS: BP 98/66
[2024-04-10] MEDS ORDERED: Venlafaxine HCl 75 MG CapCR PO SCH (09:00)
[2024-04-10] MEDS ORDERED: Divalproex Sodium 500 MG TABLET.DR PO SCH (09:00)
[2024-04-10] MEDS ORDERED: ARIPiprazole 10 MG Tab PO SCH (09:00)
[2024-04-10] MEDS ORDERED: ONDA4ODT MM (12:47)
[2024-04-10] MEDS ORDERED: CEPH500 PO (12:48)
[2024-04-10] MEDS ORDERED: VISBIOME 112.51 EACH PO (12:49)
--- NOTE | 2024-04-10 14:01 | NUR ---
1315 PATIENT DISCAHRGED HOME, REPORT TO PATIENT AND FRIEND, BOTH STATED UNDERSTANDING AND FOLLOW UP NEEDS, BOTH DENIED FURTHER QUESTIONS
== END 2024-04-10 13:31 | disposition home or self-care (01) | DRG 871 ==
LOC: ER 18:37 → ERHOLD 21:21 → ICUE 21:21 → MEDS 04-09 20:04
PROVIDERS: Family Medicine; Nurse Practitioner Acute Care; Physician Assistant; ADMIT Internal Medicine
PROC: 3E033XZ Introduction of Vasopressor into Peripheral Vein, Percutaneous Approach (ICD-10-PCS; principal; 2024-04-08)
PROC: 3E03329 Introduction of Other Anti-infective into Peripheral Vein, Percutaneous Approach (ICD-10-PCS; 2024-04-08)
DX: A41.9 Sepsis, unspecified organism (principal); R65.21 Severe sepsis with septic shock; N10 Acute pyelonephritis; E87.6 Hypokalemia; E11.9 Type 2 diabetes mellitus without complications; F41.9 Anxiety disorder, unspecified; E03.9 Hypothyroidism, unspecified; I10 Essential (primary) hypertension; D64.9 Anemia, unspecified; Z88.8 Allergy status to other drugs, medicaments and biological substances; F17.290 Nicotine dependence, other tobacco product, uncomplicated; F32.A Depression, unspecified; E78.00 Pure hypercholesterolemia, unspecified; Z90.49 Acquired absence of other specified parts of digestive tract; Z98.890 Other specified postprocedural states; R10.13 Epigastric pain; R00.0 Tachycardia, unspecified
CPT/HCPCS: 36415; 74177; 80048; 80053; 81001; 82947; 83605; 83690; 84484; 84703; 85014; 85018; 85025; 87040; 87086; 96361; 96374-59; 96375; 99285-25; A9270; J0696; J1650; J1815; J1885; J2405; J7030; J7050; J7060; J7120; Q9967

== ENCOUNTER → 2024-04-08 | Outpatient (CLI) | payer OTHER ==
[~2024-04-08] MED LIST changes: +ARIPIPRAZOLE10 M4 PO; +CEPH500 PO; +DESVENLAFAXINE50 M3 PO; +DIVA500EC PO; +VISBIOME 112.51 EACH PO
[2024-04-08 15:08] LABS: BASOPHILS ABSOLUTE AUTO 0.11 K/mm3 (0.00-0.23); BASOPHILS PERCENT AUTO 1 % (0-2); EOSINOPHILS ABSOLUTE AUTO 0.08 K/mm3 (0.00-0.68); EOSINOPHILS PERCENT AUTO 0 % (0-6); Hematocrit 39.5 % (33.0-51.0); Hemoglobin 13.4 g/dL (11.5-16.0); IMMATURE GRAN ABSOLUTE AUTO 0.11 K/mm3 (0.00-0.10); IMMATURE GRAN PERCENT AUTO 1 % (0-1); LYMPHOCYTES ABSOLUTE AUTO 4.17 K/mm3 (0.84-5.20); LYMPHOCYTES PERCENT AUTO 19 % (21-46); MONOCYTES ABSOLUTE AUTO 1.84 K/mm3 (0.16-1.47); MONOCYTES PERCENT AUTO 8 % (4-13); Mean Corpuscular HGB 29.7 pg (26.0-34.0); Mean Corpuscular HGB Conc 33.9 g/dL (31.5-36.5); Mean Corpuscular Volume 88 fL (80-100); Mean Platelet Volume 10.9 fL (9.1-12.4); NEUTROPHILS ABSOLUTE AUTO 15.54 K/mm3 (1.96-9.15); NEUTROPHILS PERCENT AUTO 71 % (41-73); Platelet Count 452 K/mm3 (150-400); RDW Coefficient Variation 11.9 % (11.7-14.2); RDW Standard Deviation 38.4 fL (35.1-46.3); Red Blood Cell Count 4.51 M/mm3 (3.80-5.20); White Blood Cell Count 21.85 K/mm3 (4.00-11.30)
[2024-04-08 15:20] LABS: Albumin, Blood 3.3 g/dL (3.4-5.0); Albumin/Globulin Ratio 0.6 (0.8-1.8); Bilirubin, Total 0.9 mg/dL (0.1-1.0); Bun/Creatinine Ratio 8.9 (12.0-20.0); Calcium, Blood 9.6 mg/dL (8.5-10.1); Creatinine, Blood 1.23 mg/dL (0.40-1.00); Globulin, Blood 5.3 g/dL (2.2-4.0); Potassium, Blood 3.4 mmol/L (3.5-5.5); Total Protein, Blood 8.6 g/dL (6.4-8.2)
== END | disposition home or self-care (01) ==
LOC: LAB 15:03 → LAB SHORT 15:03
PROVIDERS: Physician Assistant
DX: R10.13 Epigastric pain (principal); R00.0 Tachycardia, unspecified
CPT/HCPCS: 80053; 83690; 84484; 85025

== ENCOUNTER → 2024-04-17 | Outpatient (CLI) | payer OTHER ==
[~2024-04-17] MED LIST changes: +ARIPIPRAZOLE10 M4 PO; +CEPH500 PO; +DESVENLAFAXINE50 M3 PO; +DIVA500EC PO; +VISBIOME 112.51 EACH PO
[2024-04-17 13:47] LABS: BASOPHILS ABSOLUTE AUTO 0.06 K/mm3 (0.00-0.23); BASOPHILS PERCENT AUTO 1 % (0-2); EOSINOPHILS ABSOLUTE AUTO 0.29 K/mm3 (0.00-0.68); EOSINOPHILS PERCENT AUTO 3 % (0-6); Hematocrit 36.6 % (33.0-51.0); Hemoglobin 12.1 g/dL (11.5-16.0); IMMATURE GRAN ABSOLUTE AUTO 0.07 K/mm3 (0.00-0.10); IMMATURE GRAN PERCENT AUTO 1 % (0-1); LYMPHOCYTES ABSOLUTE AUTO 3.26 K/mm3 (0.84-5.20); LYMPHOCYTES PERCENT AUTO 32 % (21-46); MONOCYTES ABSOLUTE AUTO 0.64 K/mm3 (0.16-1.47); MONOCYTES PERCENT AUTO 6 % (4-13); Mean Corpuscular HGB 29.5 pg (26.0-34.0); Mean Corpuscular HGB Conc 33.1 g/dL (31.5-36.5); Mean Corpuscular Volume 89 fL (80-100); Mean Platelet Volume 9.7 fL (9.1-12.4); NEUTROPHILS ABSOLUTE AUTO 5.88 K/mm3 (1.96-9.15); NEUTROPHILS PERCENT AUTO 58 % (41-73); Platelet Count 635 K/mm3 (150-400); RDW Standard Deviation 38.5 fL (35.1-46.3)
[2024-04-17 13:55] LABS: Albumin/Globulin Ratio 0.6 (0.8-1.8); Bilirubin, Total 0.1 mg/dL (0.1-1.0); Bun/Creatinine Ratio 10.5 (12.0-20.0); Calcium, Blood 8.9 mg/dL (8.5-10.1); Creatinine, Blood 0.86 mg/dL (0.40-1.00); Globulin, Blood 4.8 g/dL (2.2-4.0); Potassium, Blood 3.8 mmol/L (3.5-5.5); Total Protein, Blood 7.8 g/dL (6.4-8.2)
== END | disposition home or self-care (01) ==
LOC: LAB 13:40 → LAB SHORT 13:40
PROVIDERS: Physician Assistant
DX: R11.2 Nausea with vomiting, unspecified (principal)
CPT/HCPCS: 80053; 85025

== ENCOUNTER → 2024-07-28 | Outpatient (CLI) | payer OTHER ==
[2024-07-29 11:37] LABS: Stool Occult Bld Immuno 1 Negative (NEGATIVE)
== END | disposition home or self-care (01) ==
LOC: LAB 14:12 → LAB SHORT 14:12
PROVIDERS: Physician Assistant
DX: R11.2 Nausea with vomiting, unspecified (principal)
CPT/HCPCS: G0328

== ENCOUNTER 2024-08-27 23:05 | Emergency (ER) | payer OTHER ==
[~2024-08-27] VITALS: Ht 162.6 cm; Wt 67.6 kg
[2024-08-27 23:37] LABS: BASOPHILS ABSOLUTE AUTO 0.13 K/mm3 (0.00-0.23); BASOPHILS PERCENT AUTO 1 % (0-2); EOSINOPHILS ABSOLUTE AUTO 0.75 K/mm3 (0.00-0.68); EOSINOPHILS PERCENT AUTO 4 % (0-6); Hematocrit 40.3 % (33.0-51.0); Hemoglobin 13.8 g/dL (11.5-16.0); IMMATURE GRAN ABSOLUTE AUTO 0.06 K/mm3 (0.00-0.10); IMMATURE GRAN PERCENT AUTO 0 % (0-1); LYMPHOCYTES ABSOLUTE AUTO 5.51 K/mm3 (0.84-5.20); LYMPHOCYTES PERCENT AUTO 28 % (21-46); MONOCYTES ABSOLUTE AUTO 1.31 K/mm3 (0.16-1.47); MONOCYTES PERCENT AUTO 7 % (4-13); Mean Corpuscular HGB 29.7 pg (26.0-34.0); Mean Corpuscular HGB Conc 34.2 g/dL (31.5-36.5); Mean Corpuscular Volume 87 fL (80-100); Mean Platelet Volume 10.7 fL (9.1-12.4); NEUTROPHILS ABSOLUTE AUTO 11.74 K/mm3 (1.96-9.15); NEUTROPHILS PERCENT AUTO 60 % (41-73); Platelet Count 560 K/mm3 (150-400); RDW Coefficient Variation 12.3 % (11.7-14.2); RDW Standard Deviation 38.8 fL (35.1-46.3); Red Blood Cell Count 4.65 M/mm3 (3.80-5.20)
[2024-08-27 23:55] LABS: Albumin/Globulin Ratio 0.9 (0.8-1.8); Bilirubin, Total 0.3 mg/dL (0.1-1.0); Bun/Creatinine Ratio 35.3 (12.0-20.0); Calcium, Blood 10.1 mg/dL (8.5-10.1); Creatinine, Blood 0.54 mg/dL (0.40-1.00); Globulin, Blood 4.4 g/dL (2.2-4.0); Potassium, Blood 3.8 mmol/L (3.5-5.5); Total Protein, Blood 8.4 g/dL (6.4-8.2)
[2024-08-28] MEDS ORDERED: Ondansetron HCl 2 MG / ML 2ML Vial ONE (01:50)
[2024-08-28] MEDS ORDERED: Ondansetron HCl 2 MG / ML 2ML Vial IV ONE (01:50)
[2024-08-28] MEDS ORDERED: Lactated Ringer's 1,000 ML IV ONE (02:25)
[2024-08-28] MEDS ORDERED: Morphine Sulfate 4 MG/1 ML Injection IV ONE (02:40)
[2024-08-28] MEDS ORDERED: Promethazine HCl 25 MG Tab PO ONE (02:45)
[2024-08-28 03:57] LABS: CORONAVIRUS COVID-19 AG Negative (NEGATIVE); INFLUENZA A AG Negative (NEGATIVE); INFLUENZA B AG Negative (NEGATIVE)
[2024-08-28] MEDS ORDERED: Droperidol 5 mg/2 ml Vial IV ONE (05:00)
[2024-08-28] MEDS ORDERED: Haloperidol Lactate Inj. 5 MG/ML Injection IV ONE (05:00)
[2024-08-28] MEDS ORDERED: NS 1,000 ML IV SCH (05:35)
[2024-08-28 09:06] LABS: Source, Urine Clean Catch
[2024-08-28 09:13] LABS: Appearance, Urine Clear (Clear); Bilirubin, Urine Neg (Neg); Blood, Urine Neg (Neg); Color, Urine Yellow (P-Yellow); Glucose Qualitative, Urine 3+ (Neg); Ketones, Urine 2+ (Neg); Leukocyte Esterase, Urine Neg (Neg); Nitrite, Urine Neg (Neg); Protein, Urine 2+ (Neg); Urobilinogen, Urine NORM (Normal)
[2024-08-28 09:22] LABS: Hyaline Casts 0-2 /lpf (0-2); Squamous Epithelial Cells Many /hpf (Few)
[2024-08-28 09:23] LABS: Bacteria Rare /hpf; Red Blood Cells, Urine Not Seen /hpf (0-2); White Blood Cells, Urine 0-2 /hpf (0-5)
[2024-08-28] MEDS ORDERED: ONDA4ODT MM (09:26)
[2024-08-28 09:50] VITALS: BP 95/64
[2024-08-29] MEDS ORDERED: ALOGLIPTIN25 M7 PO (11:38)
[2024-08-29] MEDS ORDERED: METFORMIN HCL500 M3 PO (11:38)
[2024-08-29] MEDS ORDERED: NEURONTIN300 MG PO (11:38)
[2024-08-29] MEDS ORDERED: STEGLATRO5 MG PO (11:39)
[2024-08-29] MEDS ORDERED: Protonix40 MG PO (12:44)
[2024-08-29] MEDS ORDERED: SUCR1 PO (12:44)
== END 2024-08-28 09:54 | disposition home or self-care (01) ==
LOC: ER 23:05
PROVIDERS: Student in an Organized Health Care Education/Training Program
DX: K52.9 Noninfective gastroenteritis and colitis, unspecified (principal); E11.9 Type 2 diabetes mellitus without complications; Z79.4 Long term (current) use of insulin; Z79.2 Long term (current) use of antibiotics; I10 Essential (primary) hypertension; F17.210 Nicotine dependence, cigarettes, uncomplicated
CPT/HCPCS: 71046; 74177; 80053; 81001; 83605; 83690; 84484; 84703; 85025; 87428-QW; 93005; 93010; 96361; 96374-59; 96375; 99285-25; A9270; J1630; J1790; J2270; J2405; J7030; J7120; Q9967

== ENCOUNTER 2024-08-29 09:17 | Emergency (ER) | payer OTHER ==
[~2024-08-29] VITALS: Ht 162.6 cm; Wt 63.5 kg
[2024-08-29 09:51] VITALS: BP 84/70
[2024-08-29] MEDS ORDERED: FentaNYL Citrate 50 MCG/ML 2 ML Injection IV ONE (09:55)
[2024-08-29] MEDS ORDERED: Haloperidol Lactate Inj. 5 MG/ML Injection IV ONE (09:55)
[2024-08-29] MEDS ORDERED: NS 1,000 ML IV SCH (09:55)
[2024-08-29] MEDS ORDERED: Metoclopramide HCl 5MG / ML 2ML Vial IV ONE (10:00)
[2024-08-29 10:40] LABS: BASOPHILS ABSOLUTE AUTO 0.12 K/mm3 (0.00-0.23); BASOPHILS PERCENT AUTO 1 % (0-2); EOSINOPHILS ABSOLUTE AUTO 0.81 K/mm3 (0.00-0.68); EOSINOPHILS PERCENT AUTO 6 % (0-6); Hematocrit 36.6 % (33.0-51.0); Hemoglobin 12.2 g/dL (11.5-16.0); IMMATURE GRAN ABSOLUTE AUTO 0.03 K/mm3 (0.00-0.10); IMMATURE GRAN PERCENT AUTO 0 % (0-1); LYMPHOCYTES ABSOLUTE AUTO 4.55 K/mm3 (0.84-5.20); LYMPHOCYTES PERCENT AUTO 32 % (21-46); MONOCYTES ABSOLUTE AUTO 0.91 K/mm3 (0.16-1.47); MONOCYTES PERCENT AUTO 6 % (4-13); Mean Corpuscular HGB 28.9 pg (26.0-34.0); Mean Corpuscular HGB Conc 33.3 g/dL (31.5-36.5); Mean Corpuscular Volume 87 fL (80-100); Mean Platelet Volume 10.4 fL (9.1-12.4); NEUTROPHILS ABSOLUTE AUTO 7.96 K/mm3 (1.96-9.15); NEUTROPHILS PERCENT AUTO 56 % (41-73); Platelet Count 465 K/mm3 (150-400); RDW Coefficient Variation 12.1 % (11.7-14.2); RDW Standard Deviation 38.3 fL (35.1-46.3); Red Blood Cell Count 4.22 M/mm3 (3.80-5.20); White Blood Cell Count 14.38 K/mm3 (4.00-11.30)
[2024-08-29 11:02] LABS: Albumin, Blood 3.7 g/dL (3.4-5.0); Bilirubin, Total 0.4 mg/dL (0.1-1.0); Calcium, Blood 9.1 mg/dL (8.5-10.1); Creatinine, Blood 0.5 mg/dL (0.40-1.00); Globulin, Blood 3.8 g/dL (2.2-4.0); Magnesium, Blood 1.7 mg/dL (1.6-2.4); Potassium, Blood 3.6 mmol/L (3.5-5.5); Total Protein, Blood 7.5 g/dL (6.4-8.2)
[2024-08-29] MEDS ORDERED: Sucralfate 1000MG / 10ML UD BTL PO ONE (11:35)
[2024-08-29] MEDS ORDERED: Pantoprazole Sodium 40 MG Injection IV ONE (11:35)
[2024-08-29] MEDS ORDERED: METFORMIN HCL500 M3 PO (11:38)
[2024-08-29] MEDS ORDERED: NEURONTIN300 MG PO (11:38)
[2024-08-29] MEDS ORDERED: ALOGLIPTIN25 M7 PO (11:38)
[2024-08-29] MEDS ORDERED: STEGLATRO5 MG PO (11:39)
[2024-08-29] MEDS ORDERED: SUCR1 PO (12:44)
[2024-08-29] MEDS ORDERED: Protonix40 MG PO (12:44)
== END 2024-08-29 13:06 | disposition home or self-care (01) ==
LOC: ER 09:17
PROVIDERS: Emergency Medicine
DX: R10.13 Epigastric pain (principal); R11.2 Nausea with vomiting, unspecified; I10 Essential (primary) hypertension; E03.9 Hypothyroidism, unspecified; E11.9 Type 2 diabetes mellitus without complications; F17.210 Nicotine dependence, cigarettes, uncomplicated; Z88.5 Allergy status to narcotic agent; Z79.890 Hormone replacement therapy; Z79.4 Long term (current) use of insulin
CPT/HCPCS: 80053; 83690; 83735; 84703; 85025; 96361; 96374; 96375; 99284-25; A9270; J2470; J2765; J3010; J7030

== ENCOUNTER → 2024-09-18 | Outpatient (CLI) | payer OTHER ==
[~2024-09-18] MED LIST changes: +ALOGLIPTIN25 M7 PO; +NEURONTIN300 MG PO; +Protonix40 MG PO; +STEGLATRO5 MG PO; +SUCR1 PO
[2024-09-18 10:23] LABS: Hematocrit 43.2 % (33.0-51.0); Mean Corpuscular HGB 29.2 pg (26.0-34.0); Mean Corpuscular HGB Conc 34.7 g/dL (31.5-36.5); Mean Corpuscular Volume 84 fL (80-100); Mean Platelet Volume 10.4 fL (9.1-12.4); Platelet Count 629 K/mm3 (150-400); RDW Coefficient Variation 12.8 % (11.7-14.2); Red Blood Cell Count 5.14 M/mm3 (3.80-5.20); White Blood Cell Count 16.05 K/mm3 (4.00-11.30)
[2024-09-18 10:36] LABS: Albumin, Blood 3.8 g/dL (3.4-5.0); Albumin/Globulin Ratio 0.8 (0.8-1.8); Bilirubin, Total 0.3 mg/dL (0.1-1.0); Calcium, Blood 9.7 mg/dL (8.5-10.1); Creatinine, Blood 0.57 mg/dL (0.40-1.00); Globulin, Blood 4.8 g/dL (2.2-4.0); Potassium, Blood 4.1 mmol/L (3.5-5.5); Total Protein, Blood 8.6 g/dL (6.4-8.2)
[2024-09-18 10:40] LABS: BASOPHILS ABSOLUTE MAN 0.32 K/mm3 (0.00-0.23); BASOPHILS PERCENT MAN 2 % (0-2); EOSINOPHILS ABSOLUTE MAN 0.96 K/mm3 (0.00-0.68); EOSINOPHILS PERCENT MAN 6 % (0-6); LYMPHOCYTES ABSOLUTE MAN 5.77 K/mm3 (0.84-5.20); LYMPHOCYTES PERCENT MAN 36 % (21-46); MONOCYTES ABSOLUTE MAN 1.12 K/mm3 (0.16-1.47); MONOCYTES PERCENT MAN 7 % (4-13); NEUTROPHILS ABSOLUTE MAN 7.86 K/mm3 (1.96-9.15); SEG NEUTROPHILS PERCENT MAN 49 % (41-73); TOTAL CELLS COUNTED 100
== END ==
LOC: LAB 09:55 → LAB SHORT 09:55
PROVIDERS: Emergency Medicine
DX: R11.2 Nausea with vomiting, unspecified (principal); E10.69 Type 1 diabetes mellitus with other specified complication
CPT/HCPCS: 80053; 83036; 83690; 85025

== ENCOUNTER → 2024-11-15 | Outpatient (CLI) | payer OTHER ==
[2024-11-15 12:52] LABS: BASOPHILS ABSOLUTE AUTO 0.10 K/mm3 (0.00-0.23); BASOPHILS PERCENT AUTO 1 % (0-2); EOSINOPHILS ABSOLUTE AUTO 0.60 K/mm3 (0.00-0.68); EOSINOPHILS PERCENT AUTO 4 % (0-6); Hematocrit 44.2 % (33.0-51.0); Hemoglobin 15.2 g/dL (11.5-16.0); IMMATURE GRAN ABSOLUTE AUTO 0.04 K/mm3 (0.00-0.10); IMMATURE GRAN PERCENT AUTO 0 % (0-1); LYMPHOCYTES ABSOLUTE AUTO 5.13 K/mm3 (0.84-5.20); LYMPHOCYTES PERCENT AUTO 36 % (21-46); MONOCYTES ABSOLUTE AUTO 0.58 K/mm3 (0.16-1.47); MONOCYTES PERCENT AUTO 4 % (4-13); Mean Corpuscular HGB Conc 34.4 g/dL (31.5-36.5); Mean Corpuscular Volume 88 fL (80-100); NEUTROPHILS ABSOLUTE AUTO 7.72 K/mm3 (1.96-9.15); NEUTROPHILS PERCENT AUTO 55 % (41-73); NRBC ABSOLUTE 0.00 K/mm3 (0.00-0.02); NRBC Auto 0.0 /100 WBC (0.0-0.2); Platelet Count 433 K/mm3 (150-400); RDW Coefficient Variation 13.6 % (11.7-14.2); RDW Standard Deviation 43.9 fL (35.1-46.3)
[2024-11-15 13:01] LABS: Alanine Aminotransfer (ALT/SGP 33.0 U/L (12-78); Albumin, Blood 4.4 g/dL (3.4-5.0); Albumin/Globulin Ratio 1.0 (0.8-1.8); Anion Gap 18.0 mmol/L (3-11); Aspartate Aminotrans (AST/SGOT 35.0 U/L (12-37); Bilirubin, Total 0.7 mg/dL (0.1-1.0); Blood Urea Nitrogen 13.0 mg/dL (8-24); CO2, Blood 24.0 mmol/L (21-32); Calcium, Blood 9.4 mg/dL (8.5-10.1); Chloride, Blood 95.0 mmol/L (98-108); Creatinine, Blood 0.8 mg/dL (0.40-1.00); Globulin, Blood 4.2 g/dL (2.2-4.0); Glucose, Blood 69.0 mg/dL (70-99); Potassium, Blood 3.6 mmol/L (3.5-5.5); Sodium, Blood 133.0 mmol/L (136-145); Total Protein, Blood 8.6 g/dL (6.4-8.2)
== END ==
LOC: LAB SHORT 12:43 → LAB 12:43
PROVIDERS: Physician Assistant Medical
DX: R11.2 Nausea with vomiting, unspecified (principal)
CPT/HCPCS: 80053; 83690; 85025

== ENCOUNTER 2024-12-28 21:13 | Inpatient (IN) | payer OTHER ==
[~2024-12-28] VITALS: Ht 162.6 cm; Wt 65.9 kg
[~2024-12-28 21:13] MED LIST changes: -LEVOTHYROXINE112 MCG PO; +LEVSOD75 PO; +METO10 PO
[2024-12-28 23:40] LABS: Hematocrit 46.6 % (33.0-51.0); Hemoglobin 15.8 g/dL (11.5-16.0); Mean Corpuscular HGB Conc 33.9 g/dL (31.5-36.5); Mean Corpuscular Volume 91 fL (80-100); NRBC ABSOLUTE 0.00 K/mm3 (0.00-0.02); NRBC Auto 0.0 /100 WBC (0.0-0.2); Platelet Count 500 K/mm3 (150-400); RDW Coefficient Variation 12.3 % (11.7-14.2); RDW Standard Deviation 41.6 fL (35.1-46.3)
[2024-12-28] MEDS ORDERED: DiphenhydrAMINE HCl 50 MG/ML 1ML Vial IV ONE (23:40)
[2024-12-28] MEDS ORDERED: Metoclopramide HCl 5MG / ML 2ML Vial IV ONE (23:40)
[2024-12-28] MEDS ORDERED: Pantoprazole Sodium 40 MG Injection IV ONE (23:40)
[2024-12-28] MEDS ORDERED: NS 1,000 ML IV SCH (23:40)
[2024-12-29] VITALS (26 sets, daily range): BP systolic 87–144; BP diastolic 55–95
[2024-12-29 00:08] LABS: BAND PERCENT MAN 2 % (0-8); BASOPHILS ABSOLUTE MAN 0.73 K/mm3 (0.00-0.23); BASOPHILS PERCENT MAN 3 % (0-2); EOSINOPHILS ABSOLUTE MAN 1.21 K/mm3 (0.00-0.68); EOSINOPHILS PERCENT MAN 5 % (0-6); LYMPHOCYTES ABSOLUTE MAN 5.60 K/mm3 (0.84-5.20); LYMPHOCYTES PERCENT MAN 23 % (21-46); MONOCYTES ABSOLUTE MAN 1.70 K/mm3 (0.16-1.47); MONOCYTES PERCENT MAN 7 % (4-13); NEUTROPHILS ABSOLUTE MAN 15.10 K/mm3 (1.96-9.15); SEG NEUTROPHILS PERCENT MAN 60 % (41-73)
[2024-12-29 00:10] LABS: Alanine Aminotransfer (ALT/SGP 43.0 U/L (12-78); Albumin, Blood 4.6 g/dL (3.4-5.0); Albumin/Globulin Ratio 0.9 (0.8-1.8); Anion Gap 22.0 mmol/L (3-11); Aspartate Aminotrans (AST/SGOT 28.0 U/L (12-37); Bilirubin, Total 0.6 mg/dL (0.1-1.0); Blood Urea Nitrogen 27.0 mg/dL (8-24); CO2, Blood 19.0 mmol/L (21-32); Calcium, Blood 10.1 mg/dL (8.5-10.1); Chloride, Blood 93.0 mmol/L (98-108); Creatinine, Blood 1.1 mg/dL (0.40-1.00); Globulin, Blood 5.0 g/dL (2.2-4.0); Glucose, Blood 283.0 mg/dL (70-99); Potassium, Blood 4.6 mmol/L (3.5-5.5); Sodium, Blood 129.0 mmol/L (136-145); Total Protein, Blood 9.6 g/dL (6.4-8.2)
[2024-12-29 01:01] LABS: pH Blood Venous 7.27 (7.34-7.37)
[2024-12-29] MEDS ORDERED: Insulin Human Regular 100 UNIT in NS 100 ML IV SCH (01:05)
[2024-12-29] MEDS ORDERED: Insulin Regular 100 Unit/ML 1ML Dose SC ONE (01:05)
[2024-12-29] MEDS ORDERED: D5W-NS 1,000 ML IV SCH (01:35)
[2024-12-29] MEDS ORDERED: Metoclopramide HCl 5MG / ML 2ML Vial IV PRN ×2 (02:10→02:15)
[2024-12-29] MEDS ORDERED: Ondansetron HCl 2 MG / ML 2ML Vial IV PRN ×2 (02:10→02:15)
[2024-12-29 02:28] LABS: Alanine Aminotransfer (ALT/SGP 32.0 U/L (12-78); Albumin, Blood 3.3 g/dL (3.4-5.0); Albumin/Globulin Ratio 0.8 (0.8-1.8); Anion Gap 18.0 mmol/L (3-11); Aspartate Aminotrans (AST/SGOT 27.0 U/L (12-37); Bilirubin, Total 0.5 mg/dL (0.1-1.0); Blood Urea Nitrogen 23.0 mg/dL (8-24); CO2, Blood 18.0 mmol/L (21-32); Calcium, Blood 8.5 mg/dL (8.5-10.1); Chloride, Blood 101.0 mmol/L (98-108); Creatinine, Blood 0.86 mg/dL (0.40-1.00); Globulin, Blood 4.1 g/dL (2.2-4.0); Glucose, Blood 175.0 mg/dL (70-99); Potassium, Blood 4.9 mmol/L (3.5-5.5); Sodium, Blood 132.0 mmol/L (136-145); Total Protein, Blood 7.4 g/dL (6.4-8.2)
[2024-12-29] MEDS ORDERED: Ondansetron HCl 2 MG / ML 2ML Vial ONE (02:46)
[2024-12-29] MEDS ORDERED: Morphine Sulfate 4 MG/1 ML Injection IV PRN ×2 (02:55→14:30)
[2024-12-29] MEDS ORDERED: D5W-1/2NS 1,000 ML IV SCH (03:00)
[2024-12-29] MEDS ORDERED: NS 1,000 ML IV SCH ×2 (03:00→16:00)
[2024-12-29] MEDS ORDERED: D5W-1/2NS KCl 20mEq 1,000 ML IV SCH (03:00)
--- NOTE | 2024-12-29 06:05 | NUR ---
SHIFT SUMMERY PT WAS ADMITTED FROM THE ER EARLIER THIS AM. SHE HAS BEEN ALERT AND ORIENTED X4. SHE HAS HAD SOME N/V-NO BLOOD NOTED IN EMESIS. AFEBRILE. PT HAS BEEN ST ON THE LOGGING SUPERVISOR. BP WNL. INSULIN GTT HELD PER DR FRAIRE. WAITING 6AM LAB RESULTS. NAUSEA TREATED PER EMAR. PT HAS HAD NO ACUTE DISTRESS SINCE ARRIVAL TO ICU.
[2024-12-29 06:15] LABS: Source, Urine Clean Catch
[2024-12-29 06:19] LABS: Bilirubin, Urine Neg (Neg); Color, Urine Yellow (P-Yellow); Glucose Qualitative, Urine 4+ (Neg); Ketones, Urine 4+ (Neg); Leukocyte Esterase, Urine Neg (Neg); Protein, Urine 1+ (Neg); Specific Gravity, Urine 1.015 (1.003-1.022); Urobilinogen, Urine NORM (Normal)
[2024-12-29 06:32] LABS: U Amphetamine Screen Not Detected; U Barbituate Screen Not Detected; U Benzodiazapine Screen Not Detected; U Buprenorphine Screen Not Detected; U Cannabinoids Screen DETECTED; U Cocaine Screen Not Detected; U Methadone Screen Not Detected; U Methamphetamine Screen Not Detected; U Opiates Screen Not Detected; U Oxycodone Screen Not Detected; U Phencyclidine Screen Not Detected
[2024-12-29 07:13] LABS: Anion Gap 17.0 mmol/L (3-11); Blood Urea Nitrogen 20.0 mg/dL (8-24); CO2, Blood 18.0 mmol/L (21-32); Calcium, Blood 8.9 mg/dL (8.5-10.1); Chloride, Blood 101.0 mmol/L (98-108); Creatinine, Blood 0.69 mg/dL (0.40-1.00); Glucose, Blood 208.0 mg/dL (70-99); Potassium, Blood 4.4 mmol/L (3.5-5.5); Sodium, Blood 132.0 mmol/L (136-145); Thyroid Stimulating Hormone 36.0 uIU/mL (0.360-4.800)
[2024-12-29 08:31] LABS: Anion Gap 17.0 mmol/L (3-11); Blood Urea Nitrogen 19.0 mg/dL (8-24); CO2, Blood 18.0 mmol/L (21-32); Calcium, Blood 9.0 mg/dL (8.5-10.1); Chloride, Blood 101.0 mmol/L (98-108); Creatinine, Blood 0.68 mg/dL (0.40-1.00); Glucose, Blood 212.0 mg/dL (70-99); Potassium, Blood 4.6 mmol/L (3.5-5.5); Sodium, Blood 131.0 mmol/L (136-145)
[2024-12-29] MEDS ORDERED: Enoxaparin 40 MG/0.4 ML SYR SC SCH (09:00)
[2024-12-29 10:49] LABS: Anion Gap 12.0 mmol/L (3-11); Blood Urea Nitrogen 18.0 mg/dL (8-24); CO2, Blood 22.0 mmol/L (21-32); Calcium, Blood 9.4 mg/dL (8.5-10.1); Chloride, Blood 100.0 mmol/L (98-108); Creatinine, Blood 0.75 mg/dL (0.40-1.00); Glucose, Blood 225.0 mg/dL (70-99); Potassium, Blood 4.8 mmol/L (3.5-5.5); Sodium, Blood 129.0 mmol/L (136-145)
[2024-12-29 14:57] LABS: Anion Gap 11.0 mmol/L (3-11); Blood Urea Nitrogen 16.0 mg/dL (8-24); CO2, Blood 23.0 mmol/L (21-32); Calcium, Blood 9.2 mg/dL (8.5-10.1); Chloride, Blood 100.0 mmol/L (98-108); Creatinine, Blood 0.61 mg/dL (0.40-1.00); Glucose, Blood 184.0 mg/dL (70-99); Potassium, Blood 4.0 mmol/L (3.5-5.5); Sodium, Blood 130.0 mmol/L (136-145)
[2024-12-29] MEDS ORDERED: Insulin Glargine-Yfgn 100 Unit/mL 3 ML SYR SC ONE (15:40)
--- NOTE | 2024-12-29 17:44 | NUR ---
SHIFT SUMMARY PT ALERT, ORIENTED X4. PT RESTING IN BED T/O SHIFT, USED BEDPAN. PT REPORTING CHRONIC LOWER BACK PAIN, TAKES MUSCLE RELAXER, NOTIFIED MD, NEW ORDERS ENTERED. ATTEMPTED ICE CHIPS AND SIPS OF WATER THIS AM, WORSENING NAUSEA AND EPIGASTRIC PAIN, MEDICATED PER ORDERS. STARTED INSULIN GTT THIS AM, TITRATED PER ORDERS, PLANS TO BE OFF THIS EVENING; NEW ORDERS TO D/C INSULIN GTT AND D5; THEN START NS AT 75 AND CHECK CBG Q4. PT DENIES CHEST PAIN/PRESSURE, SOB, DIZZINESS AND NUMB/TINGLING. TELE SINUS TACH THIS AM, TRENDING DOWN NSR 90'S; NOTED WIDENING QTC, NOTIFIED MD; BP DROPPED FOR SHORT WHILE THIS AM, NOW WNL. SPO2 >90% ON RA, BREATHING EVEN AND UNLABORED, LS CLEAR. ABD SOFT, TENDER, +BT; NAUSEA BUT NO EMESIS DURING SHIFT, MEDICATED PER ORDERS. OTHER VSS. CALL LIGHT WITHIN REACH.
[2024-12-29] MEDS ORDERED: Diazepam 5 MG / ML 2ML SYR IV ONE (20:10)
[2024-12-30] VITALS (23 sets, daily range): BP systolic 98–143; BP diastolic 70–100
[2024-12-30 03:25] LABS: BASOPHILS ABSOLUTE AUTO 0.10 K/mm3 (0.00-0.23); BASOPHILS PERCENT AUTO 1 % (0-2); EOSINOPHILS ABSOLUTE AUTO 1.32 K/mm3 (0.00-0.68); EOSINOPHILS PERCENT AUTO 11 % (0-6); Hematocrit 36.7 % (33.0-51.0); Hemoglobin 12.5 g/dL (11.5-16.0); IMMATURE GRAN ABSOLUTE AUTO 0.03 K/mm3 (0.00-0.10); IMMATURE GRAN PERCENT AUTO 0 % (0-1); LYMPHOCYTES ABSOLUTE AUTO 2.52 K/mm3 (0.84-5.20); LYMPHOCYTES PERCENT AUTO 21 % (21-46); MONOCYTES ABSOLUTE AUTO 0.86 K/mm3 (0.16-1.47); MONOCYTES PERCENT AUTO 7 % (4-13); Mean Corpuscular HGB Conc 34.1 g/dL (31.5-36.5); Mean Corpuscular Volume 91 fL (80-100); NEUTROPHILS ABSOLUTE AUTO 7.01 K/mm3 (1.96-9.15); NEUTROPHILS PERCENT AUTO 59 % (41-73); NRBC ABSOLUTE 0.00 K/mm3 (0.00-0.02); NRBC Auto 0.0 /100 WBC (0.0-0.2); Platelet Count 280 K/mm3 (150-400); RDW Coefficient Variation 11.9 % (11.7-14.2); RDW Standard Deviation 39.7 fL (35.1-46.3)
[2024-12-30 03:44] LABS: Alanine Aminotransfer (ALT/SGP 27.0 U/L (12-78); Albumin, Blood 3.2 g/dL (3.4-5.0); Albumin/Globulin Ratio 0.8 (0.8-1.8); Anion Gap 14.0 mmol/L (3-11); Aspartate Aminotrans (AST/SGOT 23.0 U/L (12-37); Bilirubin, Total 0.5 mg/dL (0.1-1.0); Blood Urea Nitrogen 8.0 mg/dL (8-24); CO2, Blood 17.0 mmol/L (21-32); Calcium, Blood 8.4 mg/dL (8.5-10.1); Chloride, Blood 103.0 mmol/L (98-108); Creatinine, Blood 0.45 mg/dL (0.40-1.00); Globulin, Blood 4.0 g/dL (2.2-4.0); Glucose, Blood 126.0 mg/dL (70-99); Potassium, Blood 4.0 mmol/L (3.5-5.5); Sodium, Blood 130.0 mmol/L (136-145); Total Protein, Blood 7.2 g/dL (6.4-8.2)
[2024-12-30] MEDS ORDERED: Diazepam 5 MG / ML 2ML SYR IV ONE (04:35)
--- NOTE | 2024-12-30 05:57 | NUR ---
SHIFT SUMMERY PT HAS BEEN ALERT AND ORIENTED X4, GENERALIZED WEAKNESS. AFEBRILE. PT HAS BEEN SR-ST ON THE REACH LIFT TRUCK DRIVER, BP WNL. SHE HAS CONTINUED TO COMPLAIN OF PAIN AND NAUSEA, SHE HAS BEEN MEDICATED PER EMAR. MD AWARE. NO ACUTE CHANGES OVERNIGHT.
[2024-12-30] MEDS ORDERED: Insulin Human Regular 100 UNIT in NS 100 ML IV SCH (07:30)
[2024-12-30] MEDS ORDERED: D5W-1/2NS 1,000 ML IV SCH (07:30)
[2024-12-30] MEDS ORDERED: Diazepam 5 MG / ML 2ML SYR IV PRN (09:50)
[2024-12-30] MEDS ORDERED: LORazepam 2 MG/ML 1ML Injection IV PRN (09:55)
[2024-12-30] MEDS ORDERED: PROGESTERONE200 M1 PO (10:02)
[2024-12-30] MEDS ORDERED: CYCL10 PO (10:04)
[2024-12-30] MEDS ORDERED: PROM25 PO (10:06)
[2024-12-30] MEDS ORDERED: BUPR150ER PO (10:07)
[2024-12-30] MEDS ORDERED: TIZA4 PO (10:08)
[2024-12-30] MEDS ORDERED: Tenex1 MG PO (10:08)
[2024-12-30 11:57] LABS: Anion Gap 14.0 mmol/L (3-11); Blood Urea Nitrogen 6.0 mg/dL (8-24); CO2, Blood 19.0 mmol/L (21-32); Calcium, Blood 8.9 mg/dL (8.5-10.1); Chloride, Blood 101.0 mmol/L (98-108); Creatinine, Blood 0.49 mg/dL (0.40-1.00); Glucose, Blood 170.0 mg/dL (70-99); Potassium, Blood 3.6 mmol/L (3.5-5.5); Sodium, Blood 130.0 mmol/L (136-145)
--- NOTE | 2024-12-30 12:38 | NUR ---
"Spiritual Care | Pt. Request Pt. requested prayer and this laboratory technology teacher came to bedside. Pt. displays evidence of acute abdominal pain, and tears. Facilitated a life review and it revealed that the Pt. is new to her olegario. Listen with empathy and a calm, pastoral presence. Encouragement is given as is prayer. Pt. verbalized gratitude for the spiritual care visit and welcomed this laboratory technology teacher to return."
[2024-12-30 15:49] LABS: Anion Gap 10.0 mmol/L (3-11); Blood Urea Nitrogen 4.0 mg/dL (8-24); CO2, Blood 21.0 mmol/L (21-32); Calcium, Blood 8.4 mg/dL (8.5-10.1); Chloride, Blood 103.0 mmol/L (98-108); Creatinine, Blood 0.43 mg/dL (0.40-1.00); Glucose, Blood 177.0 mg/dL (70-99); Potassium, Blood 3.5 mmol/L (3.5-5.5); Sodium, Blood 130.0 mmol/L (136-145)
--- NOTE | 2024-12-30 17:54 | NUR ---
SHIFT SUMMARY: A/O X4, PLEASANT AND COOPERATIVE WITH CARE, EMOTIONAL LIABILITY, MINIMAL COPING SKILLS, ANXIOUS, RESPONDED WELL TO THERAPEUTIC COMMUNICATION, GUIDED IMAGERY, AND BOX BREATHING EXERCISES. QTC WIDENING, NO EDEMA NOTED, D5 2NS INFUSING AT 225/HR, INSULIN GTT AT TITRATED RATE, DENIES CHEST PAIN OR PRESSURE. LUNG SOUNDS REMAIN CTA, DENIES SOB. PAIN AND NAUSEA STARTED OUT DIFFICULT TO MANAGE, IN CONTACT WITH MD RESENDEZ THROUGHOUT SHIFT, BY END OF SHIFT PT REPORTED THAT SHE WAS ABLE TO GET SOME REST. NO BM THIS SHIFT, PT ENDORSED INTENSE EPIGASTRIC PAIN, NAUSEA, AND VOMITTED BILE, ATTEMPTED TO SIP ON WATER AND THAT INDUCED MORE NAUSEA, HYPOACTIVE BOWEL TONES IN ALL 4 Q AT START OF SHIFT, NORMOACTIVE BOWEL TONES IN ALL 4 Q AFTER SIPPING ON WATER. SBA TO TOILET FOR URINE, 1 PERSON ASSIT WITH BED MOBILITY, NICOTINE PATCH TO RIGHT SHOULDER. FRIEND CAME TO BEDSIDE TWICE, [id number] TO BEDSIDE ONCE.
--- NOTE | 2024-12-30 18:44 | NUR ---
NURSE NOTE: PT REPORTED THAT SHE HAS A HISTORY OF HIDRADENITIS SUPPURATIVA (HS) BOILS AND THOUGH SHE WAS HAVING A FLARE UP. UPON ASSESSMENT, HER LEFT LABIA IS ENLARGED, HARD, AND MUCUS IS WEEPING FROM THE SITE.
[2024-12-30 20:01] LABS: Anion Gap 10.0 mmol/L (3-11); Blood Urea Nitrogen 4.0 mg/dL (8-24); CO2, Blood 23.0 mmol/L (21-32); Calcium, Blood 8.9 mg/dL (8.5-10.1); Chloride, Blood 103.0 mmol/L (98-108); Creatinine, Blood 0.44 mg/dL (0.40-1.00); Glucose, Blood 198.0 mg/dL (70-99); Potassium, Blood 3.5 mmol/L (3.5-5.5); Sodium, Blood 132.0 mmol/L (136-145)
[2024-12-30 23:20] LABS: Anion Gap 8.0 mmol/L (3-11); Blood Urea Nitrogen 4.0 mg/dL (8-24); CO2, Blood 23.0 mmol/L (21-32); Calcium, Blood 8.7 mg/dL (8.5-10.1); Chloride, Blood 102.0 mmol/L (98-108); Creatinine, Blood 0.41 mg/dL (0.40-1.00); Glucose, Blood 225.0 mg/dL (70-99); Potassium, Blood 3.4 mmol/L (3.5-5.5); Sodium, Blood 130.0 mmol/L (136-145)
[2024-12-30] MEDS ORDERED: Insulin Glargine-Yfgn 100 Unit/mL 3 ML SYR SC SCH (23:30)
[2024-12-31] VITALS (19 sets, daily range): BP systolic 91–146; BP diastolic 60–99
--- NOTE | 2024-12-31 06:13 | NUR ---
SHIFT RACHELEKori PT HAS BEEN ALERT AND ORIENTED X 4 THIS SHIFT. SHE HAS BEEN TEARFUL AND ANXIOUS AT TIMES W/COMPLAINTS OF PAIN-MEDICATED PER EMAR. SHE HAS HAD NO VOMITING THIS SHIFT AND WAS TRANSITIONED OFF OF THE INSULIN DRIP. SHE HAS BEEN UP TO BEDSIDE COMMODE W/ASSISTANCE. AFEBRILE. SHE HAS BEEN SR ON THE SOLAR ENERGY TECHNICIAN. BP WNL. SHE IS ON RA, OXYGEN SAT >95%.
[2024-12-31 06:46] LABS: Alanine Aminotransfer (ALT/SGP 25.0 U/L (12-78); Albumin, Blood 2.7 g/dL (3.4-5.0); Albumin/Globulin Ratio 0.8 (0.8-1.8); Anion Gap 11.0 mmol/L (3-11); Aspartate Aminotrans (AST/SGOT 29.0 U/L (12-37); Bilirubin, Total 0.3 mg/dL (0.1-1.0); Blood Urea Nitrogen 3.0 mg/dL (8-24); CO2, Blood 16.0 mmol/L (21-32); Calcium, Blood 8.3 mg/dL (8.5-10.1); Chloride, Blood 110.0 mmol/L (98-108); Creatinine, Blood 0.4 mg/dL (0.40-1.00); Globulin, Blood 3.4 g/dL (2.2-4.0); Glucose, Blood 96.0 mg/dL (70-99); Potassium, Blood 3.9 mmol/L (3.5-5.5); Sodium, Blood 133.0 mmol/L (136-145); Total Protein, Blood 6.1 g/dL (6.4-8.2)
[2024-12-31 07:02] LABS: BASOPHILS ABSOLUTE AUTO 0.07 K/mm3 (0.00-0.23); BASOPHILS PERCENT AUTO 1 % (0-2); EOSINOPHILS ABSOLUTE AUTO 0.90 K/mm3 (0.00-0.68); EOSINOPHILS PERCENT AUTO 11 % (0-6); Hematocrit 33.7 % (33.0-51.0); Hemoglobin 12.1 g/dL (11.5-16.0); IMMATURE GRAN ABSOLUTE AUTO 0.02 K/mm3 (0.00-0.10); IMMATURE GRAN PERCENT AUTO 0 % (0-1); LYMPHOCYTES ABSOLUTE AUTO 2.16 K/mm3 (0.84-5.20); LYMPHOCYTES PERCENT AUTO 27 % (21-46); MONOCYTES ABSOLUTE AUTO 0.67 K/mm3 (0.16-1.47); MONOCYTES PERCENT AUTO 9 % (4-13); Mean Corpuscular HGB Conc 35.9 g/dL (31.5-36.5); Mean Corpuscular Volume 87 fL (80-100); NEUTROPHILS ABSOLUTE AUTO 4.09 K/mm3 (1.96-9.15); NEUTROPHILS PERCENT AUTO 52 % (41-73); NRBC ABSOLUTE 0.00 K/mm3 (0.00-0.02); NRBC Auto 0.0 /100 WBC (0.0-0.2); Platelet Count 304 K/mm3 (150-400); RDW Coefficient Variation 11.9 % (11.7-14.2); RDW Standard Deviation 38.1 fL (35.1-46.3)
[2024-12-31] MEDS ORDERED: Insulin Human Lispro 100 Units/ML 3ML Syringe SC SCH (07:30)
[2024-12-31 12:41] LABS: Anion Gap 10.0 mmol/L (3-11); Blood Urea Nitrogen 3.0 mg/dL (8-24); CO2, Blood 22.0 mmol/L (21-32); Calcium, Blood 9.0 mg/dL (8.5-10.1); Chloride, Blood 105.0 mmol/L (98-108); Creatinine, Blood 0.42 mg/dL (0.40-1.00); Glucose, Blood 107.0 mg/dL (70-99); Potassium, Blood 3.4 mmol/L (3.5-5.5); Sodium, Blood 134.0 mmol/L (136-145)
--- NOTE | 2024-12-31 18:00 | NUR ---
SHIFT NOTE: PT A/OX4 ABLE TO MAKE HER NEEDS KNOWN. SHE HAS HAD FAMILY/FRIENDS AT BEDSIDE T/O DAY FOR SUPPORT. SHE IS TEARFUL/ANXIOUS AT TIMES WHEN FAMILY IS PRESENT. CALM AND COOPERATIVE WITH CARE OTHERWISE. SHE HAS BEEN IN SINUS/SINUS TACH T/O SHIFT WITH NO REPORTS OF CHEST PAIN. SHE IS ON RA WITH CLEAR LUNG SOUNDS. SHE HAS AMBULATED TO THE TOILET WITH 1P ASSIST. SHE HAS BEEN ENCOURAGED TO INCREASE PO INTAKE. SHE REPORTS FEELING NAUSEOUS AFTER SMALL LIQUIDS. SHE HAS NOT TOLERATED ANY SOLID FOODS. BLOOD SUGAR HAS REMAINED 100-130 T/O DAY. RIG HAND, DR SAENZ TO BEDSIDE TO EVALUATE GROIN BLISTERS. PT STARTED ON ANTIBIOTIC PER EMAR. CALL LIGHT IN REACH, CARE CONTINUES
--- NOTE | 2024-12-31 18:10 | NUR ---
UPDATE: PT REPORTS FEELING BETTER AND REQUESTS TO BE DC'D NOW. MD CALLED. PT EDUCATED ON NEED TO TOLERATE PO INTAKE BEFORE DISCHARGE. PT AGREEABLE TO WAITING UNTIL TOMORROW FOR DISCHARGE.
[2025-01-01] VITALS (7 sets, daily range): BP systolic 88–121; BP diastolic 56–83
[2025-01-01 03:58] LABS: BASOPHILS ABSOLUTE AUTO 0.08 K/mm3 (0.00-0.23); BASOPHILS PERCENT AUTO 1 % (0-2); EOSINOPHILS ABSOLUTE AUTO 1.14 K/mm3 (0.00-0.68); EOSINOPHILS PERCENT AUTO 13 % (0-6); Hematocrit 36.6 % (33.0-51.0); Hemoglobin 13.1 g/dL (11.5-16.0); IMMATURE GRAN ABSOLUTE AUTO 0.01 K/mm3 (0.00-0.10); IMMATURE GRAN PERCENT AUTO 0 % (0-1); LYMPHOCYTES ABSOLUTE AUTO 2.52 K/mm3 (0.84-5.20); LYMPHOCYTES PERCENT AUTO 30 % (21-46); MONOCYTES ABSOLUTE AUTO 0.77 K/mm3 (0.16-1.47); MONOCYTES PERCENT AUTO 9 % (4-13); Mean Corpuscular HGB Conc 35.8 g/dL (31.5-36.5); Mean Corpuscular Volume 88 fL (80-100); NEUTROPHILS ABSOLUTE AUTO 3.97 K/mm3 (1.96-9.15); NEUTROPHILS PERCENT AUTO 47 % (41-73); NRBC ABSOLUTE 0.00 K/mm3 (0.00-0.02); NRBC Auto 0.0 /100 WBC (0.0-0.2); Platelet Count 320 K/mm3 (150-400); RDW Coefficient Variation 12.0 % (11.7-14.2); RDW Standard Deviation 38.9 fL (35.1-46.3)
[2025-01-01 04:20] LABS: Alanine Aminotransfer (ALT/SGP 32.0 U/L (12-78); Albumin, Blood 3.3 g/dL (3.4-5.0); Albumin/Globulin Ratio 0.9 (0.8-1.8); Anion Gap 8.0 mmol/L (3-11); Aspartate Aminotrans (AST/SGOT 30.0 U/L (12-37); Bilirubin, Total 0.3 mg/dL (0.1-1.0); Blood Urea Nitrogen 6.0 mg/dL (8-24); CO2, Blood 25.0 mmol/L (21-32); Calcium, Blood 9.1 mg/dL (8.5-10.1); Chloride, Blood 104.0 mmol/L (98-108); Creatinine, Blood 0.44 mg/dL (0.40-1.00); Globulin, Blood 3.6 g/dL (2.2-4.0); Glucose, Blood 78.0 mg/dL (70-99); Potassium, Blood 3.3 mmol/L (3.5-5.5); Sodium, Blood 134.0 mmol/L (136-145); Total Protein, Blood 6.9 g/dL (6.4-8.2)
--- NOTE | 2025-01-01 06:33 | NUR ---
PT STABLE THROUGHOUT SHIFT. PT AOX4, SBA/1ASSIST OOB TO TOILET. CBG Q4 WNL. PT DID C/O BACK/NECK PAIN AND MEDICATED FOR THAT, SEE MAR. NO C/O N/V THROUGHOUT SHIFT. PT ABLE TO TAKE PO MEDICATIONS AND WATER W/O PROBLEM. PT DID NOT HAVE ANY FOOD DURING THE NIGHT. VITAL SIGNS WNL, OCCASSIONAL SLIGHT SINUS TACHY IN THE LOW 100s. AFEBRILE, ON ROOM AIR, RESP RATE WNL.
--- NOTE | 2025-01-01 09:22 | NUR ---
AM NOTE PT ASLEEP IN BED AT TIME OF BEDSIDE REPORT. A/OX4, ABLE TO FOLLOWS COMMANDS, AND MOVE ALL EXTREMITIES. PT REPORTS CHRONIC BACK/NECK PAIN THAT IS WELL CONTROLLED W/ REPOSITION AND MEDS FROM JUL. NSR ON MONITOR, MAPS >65, AND NO EDEMA NOTED. BREATH SOUNDS CLEAR AND SATURATING >95% ON RA. ABD SOFT AND NONTENDER, BOWEL SOUNDS HYPOACTIVE. WNL. SKIN INTACT AND W/O BREAKDOWN. PT IS ANXIOUS FOR DISCHARGE BUT COOPERATOVE W/ CARE. ACCESS: KADE BRIAN, LINDA PG
--- NOTE | 2025-01-01 09:25 | NUR ---
AMA PT STATED DESIRE TO LEAVE INPATIENT CARE AGAINST MEDICAL ADVICE. DIAGNOSIS AND RISKS OF PREMATURE DISCHARGE WERE DISCUSSED W/ PATIENT. MD NOTIFIED AND ADVISED HE WOULD BE SENDING MEDICATIONS TO PHARMACY. PT SIGNED AMA FORM AFTER DISCUSSION. ALL IV ACCESS WAS REMOVED, PERSONAL BELONGINGS PACKED, AND PT WAS ESCORTED TO [facility] VIA WHEELCHAIR W./ FRIEND FOR DEPARTURE.
[2025-01-02] MEDS ORDERED: METO10 PO (19:49)
[2025-01-02] MEDS ORDERED: PHENERGAN25 MG PR (19:49)
== END 2025-01-01 09:15 | disposition left against medical advice (07) | DRG 638 ==
LOC: ER 21:13 → ICUE 12-29 02:09
PROVIDERS: Emergency Medicine; Internal Medicine; Physician Assistant; Student in an Organized Health Care Education/Training Program; ADMIT Student in an Organized Health Care Education/Training Program
DX: E11.10 Type 2 diabetes mellitus with ketoacidosis without coma (principal); N17.9 Acute kidney failure, unspecified; F90.9 Attention-deficit hyperactivity disorder, unspecified type; E03.9 Hypothyroidism, unspecified; F31.9 Bipolar disorder, unspecified; E11.43 Type 2 diabetes mellitus with diabetic autonomic (poly)neuropathy; K31.84 Gastroparesis; K52.9 Noninfective gastroenteritis and colitis, unspecified; F41.9 Anxiety disorder, unspecified; E78.00 Pure hypercholesterolemia, unspecified; I10 Essential (primary) hypertension; L73.2 Hidradenitis suppurativa; Z90.49 Acquired absence of other specified parts of digestive tract; Z88.8 Allergy status to other drugs, medicaments and biological substances; Z79.84 Long term (current) use of oral hypoglycemic drugs; Z79.899 Other long term (current) drug therapy; Z79.890 Hormone replacement therapy; Z53.29 Procedure and treatment not carried out because of patient's decision for other reasons; Z88.5 Allergy status to narcotic agent
CPT/HCPCS: 36415; 71260; 74177; 80048; 80053; 82010; 82803; 82947; 83036; 83605; 83690; 84443; 84703; 85025; 93005; 93010; 94762; 96361; 96365; 96374; 96374-59; 96375; 96375-59; 99284-25; 99285-25; A9270; C1751; J1200; J1650; J1790; J1815; J1885; J2060; J2270; J2405; J2470; J2765; J3360; J3480; J7030; J7042; J7050; J7120; Q9967

== ENCOUNTER 2025-01-01 20:16 | Emergency (ER) | payer OTHER ==
[~2025-01-01] VITALS: Ht 162.6 cm; Wt 68.0 kg
[~2025-01-01 20:16] MED LIST changes: +BUPR150ER PO; +PROGESTERONE200 M1 PO; +TIZA4 PO; +Tenex1 MG PO
[2025-01-01 20:37] VITALS: BP 105/79
[2025-01-01] MEDS ORDERED: NS 1,000 ML IV SCH (20:45)
[2025-01-01 21:21] LABS: pH Blood Venous 7.45 (7.34-7.37)
[2025-01-01 21:32] LABS: BASOPHILS ABSOLUTE AUTO 0.10 K/mm3 (0.00-0.23); BASOPHILS PERCENT AUTO 1 % (0-2); EOSINOPHILS ABSOLUTE AUTO 1.11 K/mm3 (0.00-0.68); EOSINOPHILS PERCENT AUTO 9 % (0-6); Hematocrit 38.5 % (33.0-51.0); Hemoglobin 13.7 g/dL (11.5-16.0); IMMATURE GRAN ABSOLUTE AUTO 0.03 K/mm3 (0.00-0.10); IMMATURE GRAN PERCENT AUTO 0 % (0-1); LYMPHOCYTES ABSOLUTE AUTO 3.50 K/mm3 (0.84-5.20); LYMPHOCYTES PERCENT AUTO 30 % (21-46); MONOCYTES ABSOLUTE AUTO 0.79 K/mm3 (0.16-1.47); MONOCYTES PERCENT AUTO 7 % (4-13); Mean Corpuscular HGB Conc 35.6 g/dL (31.5-36.5); Mean Corpuscular Volume 87 fL (80-100); NEUTROPHILS ABSOLUTE AUTO 6.35 K/mm3 (1.96-9.15); NEUTROPHILS PERCENT AUTO 54 % (41-73); NRBC ABSOLUTE 0.00 K/mm3 (0.00-0.02); NRBC Auto 0.0 /100 WBC (0.0-0.2); Platelet Count 440 K/mm3 (150-400); RDW Coefficient Variation 12.0 % (11.7-14.2); RDW Standard Deviation 38.3 fL (35.1-46.3)
[2025-01-01 21:57] LABS: Alanine Aminotransfer (ALT/SGP 36.0 U/L (12-78); Albumin, Blood 3.8 g/dL (3.4-5.0); Albumin/Globulin Ratio 0.9 (0.8-1.8); Anion Gap 13.0 mmol/L (3-11); Aspartate Aminotrans (AST/SGOT 27.0 U/L (12-37); Bilirubin, Total 0.4 mg/dL (0.1-1.0); Blood Urea Nitrogen 11.0 mg/dL (8-24); CO2, Blood 22.0 mmol/L (21-32); Calcium, Blood 10.0 mg/dL (8.5-10.1); Chloride, Blood 100.0 mmol/L (98-108); Creatinine, Blood 0.51 mg/dL (0.40-1.00); Globulin, Blood 4.2 g/dL (2.2-4.0); Glucose, Blood 138.0 mg/dL (70-99); Potassium, Blood 3.8 mmol/L (3.5-5.5); Sodium, Blood 131.0 mmol/L (136-145); Total Protein, Blood 8.0 g/dL (6.4-8.2)
[2025-01-02] MEDS ORDERED: METO10 PO (19:49)
[2025-01-02] MEDS ORDERED: PHENERGAN25 MG PR (19:49)
== END 2025-01-01 21:57 | disposition left against medical advice (07) ==
LOC: ER 20:16
PROVIDERS: Student in an Organized Health Care Education/Training Program
DX: E11.10 Type 2 diabetes mellitus with ketoacidosis without coma (principal); Z53.29 Procedure and treatment not carried out because of patient's decision for other reasons
CPT/HCPCS: 80053; 82010; 82803; 82947; 85025; 93005; 93010; 99282-25

== ENCOUNTER 2025-01-02 14:26 | Emergency (ER) | payer OTHER ==
[~2025-01-02] VITALS: Ht 170.2 cm; Wt 65.8 kg
[2025-01-02] MEDS ORDERED: Morphine Sulfate 4 MG/1 ML Injection IV ONE ×2 (14:50→18:40)
[2025-01-02] MEDS ORDERED: Ondansetron HCl 2 MG / ML 2ML Vial IV ONE (14:50)
[2025-01-02 15:14] LABS: pH Blood Venous 7.38 (7.34-7.37)
[2025-01-02 15:24] LABS: BASOPHILS ABSOLUTE AUTO 0.14 K/mm3 (0.00-0.23); BASOPHILS PERCENT AUTO 1 % (0-2); EOSINOPHILS ABSOLUTE AUTO 1.05 K/mm3 (0.00-0.68); EOSINOPHILS PERCENT AUTO 8 % (0-6); Hematocrit 41.0 % (33.0-51.0); Hemoglobin 14.5 g/dL (11.5-16.0); IMMATURE GRAN ABSOLUTE AUTO 0.03 K/mm3 (0.00-0.10); IMMATURE GRAN PERCENT AUTO 0 % (0-1); LYMPHOCYTES ABSOLUTE AUTO 3.90 K/mm3 (0.84-5.20); LYMPHOCYTES PERCENT AUTO 28 % (21-46); MONOCYTES ABSOLUTE AUTO 1.00 K/mm3 (0.16-1.47); MONOCYTES PERCENT AUTO 7 % (4-13); Mean Corpuscular HGB Conc 35.4 g/dL (31.5-36.5); Mean Corpuscular Volume 89 fL (80-100); NEUTROPHILS ABSOLUTE AUTO 7.96 K/mm3 (1.96-9.15); NEUTROPHILS PERCENT AUTO 57 % (41-73); NRBC ABSOLUTE 0.00 K/mm3 (0.00-0.02); NRBC Auto 0.0 /100 WBC (0.0-0.2); Platelet Count 471 K/mm3 (150-400); RDW Coefficient Variation 12.2 % (11.7-14.2); RDW Standard Deviation 39.8 fL (35.1-46.3)
[2025-01-02 15:30] LABS: Source, Urine Clean Catch
[2025-01-02] MEDS ORDERED: Ketorolac Tromethamine 15mg Vial IV ONE (15:30)
[2025-01-02 16:03] LABS: Magnesium, Blood 1.7 mg/dL (1.6-2.4); Thyroid Stimulating Hormone 93.7 uIU/mL (0.360-4.800)
[2025-01-02 16:08] LABS: Bilirubin, Urine Neg (Neg); Color, Urine Yellow (P-Yellow); Glucose Qualitative, Urine 2+ (Neg); Ketones, Urine 4+ (Neg); Leukocyte Esterase, Urine Neg (Neg); Protein, Urine 2+ (Neg); Specific Gravity, Urine 1.030 (1.003-1.022); Urobilinogen, Urine NORM (Normal)
[2025-01-02 16:25] LABS: Red Blood Cells, Urine 0-2 /hpf (0-2); White Blood Cells, Urine 0-2 /hpf (0-5)
[2025-01-02 16:37] LABS: Alanine Aminotransfer (ALT/SGP 36.0 U/L (12-78); Albumin, Blood 4.0 g/dL (3.4-5.0); Albumin/Globulin Ratio 0.9 (0.8-1.8); Anion Gap 16.0 mmol/L (3-11); Aspartate Aminotrans (AST/SGOT 27.0 U/L (12-37); Bilirubin, Total 0.5 mg/dL (0.1-1.0); Blood Urea Nitrogen 12.0 mg/dL (8-24); CO2, Blood 19.0 mmol/L (21-32); Calcium, Blood 9.6 mg/dL (8.5-10.1); Chloride, Blood 99.0 mmol/L (98-108); Creatinine, Blood 0.52 mg/dL (0.40-1.00); Globulin, Blood 4.4 g/dL (2.2-4.0); Glucose, Blood 164.0 mg/dL (70-99); Potassium, Blood 3.9 mmol/L (3.5-5.5); Sodium, Blood 130.0 mmol/L (136-145); Total Protein, Blood 8.4 g/dL (6.4-8.2)
[2025-01-02] MEDS ORDERED: Haloperidol Lactate Inj. 5 MG/ML Injection IV ONE (16:45)
[2025-01-02 17:04] LABS: U Amphetamine Screen Not Detected; U Barbituate Screen Not Detected; U Benzodiazapine Screen DETECTED; U Buprenorphine Screen Not Detected; U Cannabinoids Screen DETECTED; U Cocaine Screen Not Detected; U Methadone Screen Not Detected; U Methamphetamine Screen Not Detected; U Opiates Screen DETECTED; U Oxycodone Screen Not Detected; U Phencyclidine Screen Not Detected
[2025-01-02] MEDS ORDERED: Metoclopramide HCl 5MG / ML 2ML Vial IV ONE ×2 (17:55→19:50)
[2025-01-02 19:45] VITALS: BP 108/78
[2025-01-02] MEDS ORDERED: METO10 PO (19:49)
[2025-01-02] MEDS ORDERED: PHENERGAN25 MG PR (19:49)
== END 2025-01-02 20:05 | disposition home or self-care (01) ==
LOC: ER 14:26
PROVIDERS: Student in an Organized Health Care Education/Training Program
DX: R11.2 Nausea with vomiting, unspecified (principal); R10.9 Unspecified abdominal pain; I10 Essential (primary) hypertension; E11.9 Type 2 diabetes mellitus without complications; Z87.19 Personal history of other diseases of the digestive system; Z88.8 Allergy status to other drugs, medicaments and biological substances; Z79.84 Long term (current) use of oral hypoglycemic drugs; Z79.899 Other long term (current) drug therapy; F17.210 Nicotine dependence, cigarettes, uncomplicated; Z87.442 Personal history of urinary calculi; Z53.29 Procedure and treatment not carried out because of patient's decision for other reasons
CPT/HCPCS: 80053; 81001; 82010; 82803; 82947; 83605; 83735; 84439; 84443; 84484; 84703; 85025; 93005; 93010; J1630; J1885; J2270; J2405; J2765; J7120

== ENCOUNTER 2025-01-05 12:31 | Emergency (ER) | payer OTHER ==
[~2025-01-05] VITALS: Ht 162.6 cm; Wt 61.2 kg
[2025-01-05] MEDS ORDERED: NS 1,000 ML IV SCH ×2 (13:25→15:50)
[2025-01-05] MEDS ORDERED: Haloperidol Lactate Inj. 5 MG/ML Injection IV ONE (13:25)
[2025-01-05 13:53] VITALS: BP 93/78
[2025-01-05 14:01] LABS: pH Blood Venous 7.24 (7.34-7.37)
[2025-01-05 14:08] LABS: Hematocrit 37.9 % (33.0-51.0); Hemoglobin 13.1 g/dL (11.5-16.0); Mean Corpuscular HGB Conc 34.6 g/dL (31.5-36.5); Mean Corpuscular Volume 91 fL (80-100); NRBC ABSOLUTE 0.00 K/mm3 (0.00-0.02); NRBC Auto 0.0 /100 WBC (0.0-0.2); Platelet Count 497 K/mm3 (150-400); RDW Coefficient Variation 12.6 % (11.7-14.2); RDW Standard Deviation 41.1 fL (35.1-46.3)
[2025-01-05 14:15] LABS: Magnesium, Blood 1.8 mg/dL (1.6-2.4)
[2025-01-05 14:30] LABS: BASOPHILS ABSOLUTE MAN 0.37 K/mm3 (0.00-0.23); BASOPHILS PERCENT MAN 3 % (0-2); EOSINOPHILS ABSOLUTE MAN 1.12 K/mm3 (0.00-0.68); EOSINOPHILS PERCENT MAN 9 % (0-6); LYMPHOCYTES % ATYPICAL MANUAL 2 % (0-0); LYMPHOCYTES ABSOLUTE MAN 3.48 K/mm3 (0.84-5.20); LYMPHOCYTES PERCENT MAN 26 % (21-46); MONOCYTES ABSOLUTE MAN 0.62 K/mm3 (0.16-1.47); MONOCYTES PERCENT MAN 5 % (4-13); NEUTROPHILS ABSOLUTE MAN 6.84 K/mm3 (1.96-9.15); SEG NEUTROPHILS PERCENT MAN 55 % (41-73)
[2025-01-05 15:03] LABS: Alanine Aminotransfer (ALT/SGP 30.0 U/L (12-78); Albumin, Blood 3.9 g/dL (3.4-5.0); Albumin/Globulin Ratio 1.0 (0.8-1.8); Anion Gap 16.0 mmol/L (3-11); Aspartate Aminotrans (AST/SGOT 24.0 U/L (12-37); Bilirubin, Total 0.4 mg/dL (0.1-1.0); Blood Urea Nitrogen 11.0 mg/dL (8-24); CO2, Blood 18.0 mmol/L (21-32); Calcium, Blood 8.9 mg/dL (8.5-10.1); Chloride, Blood 103.0 mmol/L (98-108); Creatinine, Blood 0.66 mg/dL (0.40-1.00); Globulin, Blood 4.0 g/dL (2.2-4.0); Glucose, Blood 150.0 mg/dL (70-99); Phosphorus, Blood 3.2 mg/dL (2.5-4.9); Potassium, Blood 3.7 mmol/L (3.5-5.5); Sodium, Blood 133.0 mmol/L (136-145); Total Protein, Blood 7.9 g/dL (6.4-8.2)
[2025-01-05 17:23] LABS: pH Blood Venous 7.23 (7.34-7.37)
== END 2025-01-05 18:22 | disposition home or self-care (01) ==
LOC: ER 12:31
PROVIDERS: Physician Assistant
DX: E11.10 Type 2 diabetes mellitus with ketoacidosis without coma (principal); I10 Essential (primary) hypertension; E03.9 Hypothyroidism, unspecified; E78.00 Pure hypercholesterolemia, unspecified; F17.210 Nicotine dependence, cigarettes, uncomplicated; Z88.5 Allergy status to narcotic agent; Z79.890 Hormone replacement therapy; Z79.84 Long term (current) use of oral hypoglycemic drugs; Z79.899 Other long term (current) drug therapy; R10.10 Upper abdominal pain, unspecified
CPT/HCPCS: 80053; 82010; 82803; 82947; 83690; 83735; 84100; 85025; 93005; 93010; 96360; 99285-25; J7030

== ENCOUNTER → 2025-01-05 | Outpatient (CLI) | payer OTHER ==
[~2025-01-05] MED LIST changes: +PHENERGAN25 MG PR
[2025-01-05 11:44] LABS: Hematocrit 43.5 % (33.0-51.0); Hemoglobin 15.4 g/dL (11.5-16.0); Mean Corpuscular HGB Conc 35.4 g/dL (31.5-36.5); Mean Corpuscular Volume 88 fL (80-100); NRBC ABSOLUTE 0.00 K/mm3 (0.00-0.02); NRBC Auto 0.0 /100 WBC (0.0-0.2); Platelet Count 589 K/mm3 (150-400); RDW Coefficient Variation 12.6 % (11.7-14.2); RDW Standard Deviation 40.0 fL (35.1-46.3)
[2025-01-05 11:58] LABS: Alanine Aminotransfer (ALT/SGP 37.0 U/L (12-78); Albumin, Blood 4.5 g/dL (3.4-5.0); Albumin/Globulin Ratio 0.9 (0.8-1.8); Anion Gap 25.0 mmol/L (3-11); Aspartate Aminotrans (AST/SGOT 29.0 U/L (12-37); Bilirubin, Total 0.5 mg/dL (0.1-1.0); Blood Urea Nitrogen 12.0 mg/dL (8-24); CO2, Blood 17.0 mmol/L (21-32); Calcium, Blood 10.3 mg/dL (8.5-10.1); Chloride, Blood 100.0 mmol/L (98-108); Creatinine, Blood 1.0 mg/dL (0.40-1.00); Globulin, Blood 4.8 g/dL (2.2-4.0); Glucose, Blood 178.0 mg/dL (70-99); Potassium, Blood 4.1 mmol/L (3.5-5.5); Sodium, Blood 138.0 mmol/L (136-145); Total Protein, Blood 9.3 g/dL (6.4-8.2)
[2025-01-05 12:29] LABS: BAND PERCENT MAN 0 % (0-8); LYMPHOCYTES % ATYPICAL MANUAL 9 % (0-0); LYMPHOCYTES ABSOLUTE MAN 6.08 K/mm3 (0.84-5.20); LYMPHOCYTES PERCENT MAN 33 % (21-46); NEUTROPHILS ABSOLUTE MAN 7.38 K/mm3 (1.96-9.15); SEG NEUTROPHILS PERCENT MAN 51 % (41-73)
[2025-01-05 12:30] LABS: BASOPHILS ABSOLUTE MAN 0.00 K/mm3 (0.00-0.23); BASOPHILS PERCENT MAN 0 % (0-2); EOSINOPHILS ABSOLUTE MAN 0.43 K/mm3 (0.00-0.68); EOSINOPHILS PERCENT MAN 3 % (0-6); MONOCYTES ABSOLUTE MAN 0.57 K/mm3 (0.16-1.47); MONOCYTES PERCENT MAN 4 % (4-13)
== END | disposition home or self-care (01) ==
LOC: LAB SHORT 11:39 → LAB 11:39
PROVIDERS: Physician Assistant Medical
DX: R10.10 Upper abdominal pain, unspecified (principal)
CPT/HCPCS: 80053; 83690; 85025

== ENCOUNTER 2025-01-06 13:04 | Inpatient (IN) | payer OTHER ==
[~2025-01-06] VITALS: Ht 162.6 cm; Wt 66.2 kg
[2025-01-06 13:37] LABS: pH Blood Venous 7.27 (7.34-7.37)
[2025-01-06 13:53] LABS: Hematocrit 36.4 % (33.0-51.0); Hemoglobin 12.7 g/dL (11.5-16.0); Mean Corpuscular HGB Conc 34.9 g/dL (31.5-36.5); Mean Corpuscular Volume 88 fL (80-100); NRBC ABSOLUTE 0.00 K/mm3 (0.00-0.02); NRBC Auto 0.0 /100 WBC (0.0-0.2); Platelet Count 450 K/mm3 (150-400); RDW Coefficient Variation 12.6 % (11.7-14.2); RDW Standard Deviation 40.7 fL (35.1-46.3)
[2025-01-06 14:20] LABS: BASOPHILS ABSOLUTE MAN 0.12 K/mm3 (0.00-0.23); BASOPHILS PERCENT MAN 1 % (0-2); EOSINOPHILS ABSOLUTE MAN 1.47 K/mm3 (0.00-0.68); EOSINOPHILS PERCENT MAN 12 % (0-6); LYMPHOCYTES ABSOLUTE MAN 2.58 K/mm3 (0.84-5.20); LYMPHOCYTES PERCENT MAN 18 % (21-46); MONOCYTES ABSOLUTE MAN 0.73 K/mm3 (0.16-1.47); MONOCYTES PERCENT MAN 6 % (4-13); NEUTROPHILS ABSOLUTE MAN 7.39 K/mm3 (1.96-9.15); SEG NEUTROPHILS PERCENT MAN 60 % (41-73)
[2025-01-06 14:22] LABS: LYMPHOCYTES % ATYPICAL MANUAL 3 % (0-0)
[2025-01-06 14:51] LABS: Alanine Aminotransfer (ALT/SGP 29.0 U/L (12-78); Albumin, Blood 3.5 g/dL (3.4-5.0); Albumin/Globulin Ratio 0.9 (0.8-1.8); Anion Gap 14.0 mmol/L (3-11); Aspartate Aminotrans (AST/SGOT 25.0 U/L (12-37); Bilirubin, Total 0.4 mg/dL (0.1-1.0); Blood Urea Nitrogen 7.0 mg/dL (8-24); CO2, Blood 19.0 mmol/L (21-32); Calcium, Blood 8.9 mg/dL (8.5-10.1); Chloride, Blood 106.0 mmol/L (98-108); Creatinine, Blood 0.54 mg/dL (0.40-1.00); Globulin, Blood 3.9 g/dL (2.2-4.0); Glucose, Blood 113.0 mg/dL (70-99); Potassium, Blood 3.5 mmol/L (3.5-5.5); Sodium, Blood 135.0 mmol/L (136-145); Total Protein, Blood 7.4 g/dL (6.4-8.2)
[2025-01-06 16:17] LABS: Source, Urine Clean Catch
[2025-01-06 16:20] LABS: Bilirubin, Urine Neg (Neg); Color, Urine Yellow (P-Yellow); Glucose Qualitative, Urine Neg (Neg); Ketones, Urine 4+ (Neg); Leukocyte Esterase, Urine Neg (Neg); Protein, Urine 1+ (Neg); Specific Gravity, Urine 1.025 (1.003-1.022); Urobilinogen, Urine NORM (Normal)
[2025-01-06] MEDS ORDERED: Metoclopramide HCl 5MG / ML 2ML Vial IV ONE (16:55)
[2025-01-06] MEDS ORDERED: Pantoprazole Sodium 40 MG Injection IV ONE (16:55)
[2025-01-06] MEDS ORDERED: NS 1,000 ML IV SCH ×2 (16:55→18:35)
[2025-01-06] MEDS ORDERED: FentaNYL Citrate 50 MCG/ML 2 ML Injection IV ONE (16:55)
[2025-01-06 16:57] LABS: Red Blood Cells, Urine 0-2 /hpf (0-2)
[2025-01-06] MEDS ORDERED: Haloperidol Lactate Inj. 5 MG/ML Injection IV ONE (17:00)
[2025-01-06] MEDS ORDERED: Ondansetron HCl 2 MG / ML 2ML Vial IV PRN (18:35)
[2025-01-06] MEDS ORDERED: FentaNYL Citrate 50 MCG/ML 2 ML Injection IV PRN (18:35)
[2025-01-06] MEDS ORDERED: Magnesium Sulf 2 GM/Water 50ML 50 ML IV STA (18:55)
[2025-01-06] MEDS ORDERED: CefTRIAXone Sodium 1,000 MG in NS 100 ML IV SCH (19:00)
[2025-01-06] MEDS ORDERED: Lidocaine 4% 1 Patch TOP PRN (19:00)
[2025-01-06 20:16] LABS: U Amphetamine Screen Not Detected; U Barbituate Screen Not Detected; U Benzodiazapine Screen DETECTED; U Buprenorphine Screen Not Detected; U Cannabinoids Screen DETECTED; U Cocaine Screen Not Detected; U Methadone Screen Not Detected; U Methamphetamine Screen Not Detected; U Opiates Screen Not Detected; U Oxycodone Screen Not Detected; U Phencyclidine Screen Not Detected
[2025-01-06 20:20] LABS: Anion Gap 15.0 mmol/L (3-11); Blood Urea Nitrogen 6.0 mg/dL (8-24); CO2, Blood 16.0 mmol/L (21-32); Calcium, Blood 8.4 mg/dL (8.5-10.1); Chloride, Blood 109.0 mmol/L (98-108); Creatinine, Blood 0.5 mg/dL (0.40-1.00); Glucose, Blood 87.0 mg/dL (70-99); Magnesium, Blood 2.3 mg/dL (1.6-2.4); Phosphorus, Blood 2.3 mg/dL (2.5-4.9); Potassium, Blood 3.4 mmol/L (3.5-5.5); Sodium, Blood 137.0 mmol/L (136-145)
[2025-01-06] MEDS ORDERED: Lactobacil 2-S.Thermo-Bifido 1 1 Cap PO SCH (21:00)
[2025-01-06] MEDS ORDERED: Insulin Glargine,Hum.Rec.Anlog 100 UNIT/ML 3MLSYR SC SCH (21:00)
[2025-01-06 21:09] VITALS: BP 116/67
[2025-01-06] MEDS ORDERED: D5W-1/2NS 1,000 ML IV SCH (22:00)
--- NOTE | 2025-01-06 22:15 | NUR ---
PATIENT ARRIVED FROM ER WITH NO BLOOD GLUCOSE MONITORING ORDERS, LAST SET OF Q4H LABS END AT 2230 TONIGHT WITH THE NEXT SET DUE TOMORROW AT 0500, NO REPEAT VBG ORDER, AND ONLY HAS NORMAL SALINE CONTINUOUS FLUID ORDERS. INITIAL BLOOD GLUCOSE ON ARRIVAL WAS 87. PATIENT REPORTS HAVING POOR PO INTAKE AND STATES SHE HAS NEVER EXPERIENCED HYPOGLYCEMIA BEFORE AND IS UNSURE OF WHAT HER SYMPTOMS ARE. THIS NURSE CONTACTED DR. OSUNA TO REQUEST FOR SCHEDULED BLOOD GLUCOSE CHECKS (SUGGESTED Q2H CHECKS) ESPECIALLY SINCE THERE WON'T BE Q4H LAB DRAWS ANYMORE, ASKED FOR REPEAT VBG CHECK, AND TO SWITCH THE NORMAL SALINE TO D5% 1/2 NORMAL SALINE SINCE PATIENT HAS POOR PO INTAKE. ORDERED FOR Q6H CBG CHECKS/PRN CHECKS FOR SIGNS/SYMPTOMS OF HYPOGLYCEMIA AND SWITCHED THE NORMAL SALINE TO D5% 1/2 NORMAL SALINE FLUIDS TO 100ML/HR. NO OTHER ORDERS AT THIS TIME.
[2025-01-06 22:58] LABS: Anion Gap 16.0 mmol/L (3-11); Blood Urea Nitrogen 6.0 mg/dL (8-24); CO2, Blood 17.0 mmol/L (21-32); Calcium, Blood 8.3 mg/dL (8.5-10.1); Chloride, Blood 108.0 mmol/L (98-108); Creatinine, Blood 0.47 mg/dL (0.40-1.00); Glucose, Blood 96.0 mg/dL (70-99); Magnesium, Blood 2.3 mg/dL (1.6-2.4); Phosphorus, Blood 2.9 mg/dL (2.5-4.9); Potassium, Blood 3.5 mmol/L (3.5-5.5); Sodium, Blood 137.0 mmol/L (136-145)
--- NOTE | 2025-01-06 23:33 | NUR ---
CALLED DR. OSUNA AGAIN FOR A REPEAT VBG SINCE THE LAST ONE WAS TAKEN AT 13:28 TODAY AND HAD A CRITICAL LOW PH, LOW CO2 AT 35.9, AND LOW HCO3 AT 17.0. ALSO REQUESTED FOR CBG CHECKS TO BE Q2H SINCE PATIENT IS STILL NOT EATING OR DRINKING AND CAN BECOME UNSTABLE QUICKLY. ALSO PATIENTS RECENT CBC/CMP RESULTS HAVE TRENDED DOWN. ORDERED FOR A VBG AND SAID THAT Q6H CBG CHECKS SHOULD BE SUFFICIENT FOR NOW.
[2025-01-06 23:43] VITALS: BP 92/58
[2025-01-06 23:44] LABS: pH Blood Venous 7.29 (7.34-7.37)
[2025-01-07] MEDS ORDERED: Insulin Regular 100 UNIT/ML 10ML Vial SC SCH
[2025-01-07] MEDS ORDERED: Metoclopramide HCl 5MG / ML 2ML Vial IV SCH
[2025-01-07 04:05] LABS: Hematocrit 31.2 % (33.0-51.0); Hemoglobin 11.0 g/dL (11.5-16.0); Mean Corpuscular HGB Conc 35.3 g/dL (31.5-36.5); Mean Corpuscular Volume 89 fL (80-100); NRBC ABSOLUTE 0.00 K/mm3 (0.00-0.02); NRBC Auto 0.0 /100 WBC (0.0-0.2); Platelet Count 382 K/mm3 (150-400); RDW Coefficient Variation 12.6 % (11.7-14.2); RDW Standard Deviation 40.6 fL (35.1-46.3)
[2025-01-07 04:20] LABS: pH Blood Venous 7.33 (7.34-7.37)
[2025-01-07 04:21] VITALS: BP 95/63
[2025-01-07 04:23] LABS: Alanine Aminotransfer (ALT/SGP 21.0 U/L (12-78); Albumin, Blood 2.9 g/dL (3.4-5.0); Albumin/Globulin Ratio 0.9 (0.8-1.8); Anion Gap 12.0 mmol/L (3-11); Aspartate Aminotrans (AST/SGOT 19.0 U/L (12-37); Bilirubin, Total 0.3 mg/dL (0.1-1.0); Blood Urea Nitrogen 6.0 mg/dL (8-24); CO2, Blood 19.0 mmol/L (21-32); Calcium, Blood 8.1 mg/dL (8.5-10.1); Chloride, Blood 110.0 mmol/L (98-108); Creatinine, Blood 0.43 mg/dL (0.40-1.00); Globulin, Blood 3.3 g/dL (2.2-4.0); Glucose, Blood 115.0 mg/dL (70-99); Potassium, Blood 3.7 mmol/L (3.5-5.5); Sodium, Blood 137.0 mmol/L (136-145); Total Protein, Blood 6.2 g/dL (6.4-8.2)
[2025-01-07 04:40] LABS: BASOPHILS ABSOLUTE MAN 0.34 K/mm3 (0.00-0.23); BASOPHILS PERCENT MAN 4 % (0-2); EOSINOPHILS ABSOLUTE MAN 1.12 K/mm3 (0.00-0.68); EOSINOPHILS PERCENT MAN 13 % (0-6); LYMPHOCYTES ABSOLUTE MAN 3.36 K/mm3 (0.84-5.20); LYMPHOCYTES PERCENT MAN 39 % (21-46); MONOCYTES ABSOLUTE MAN 0.25 K/mm3 (0.16-1.47); MONOCYTES PERCENT MAN 3 % (4-13); NEUTROPHILS ABSOLUTE MAN 3.53 K/mm3 (1.96-9.15); SEG NEUTROPHILS PERCENT MAN 41 % (41-73)
--- NOTE | 2025-01-07 05:57 | NUR ---
SHIFT SUMMARY: PATIENT HAS BEEN SLEEPING MAJORITY OF THE SHIFT, AWOKEN TO VERBAL STIMULI AND IS A&OX4. PATIENT SOMETIMES WILL SPEAK BUT OTHER TIMES WILL ONLY NOD HER HEAD "YES" OR "NO" TO QUESTIONS. TELE SHOWS SINUS RHYTHM @ 80'S BPM. SBP'S HAVE BEEN MAINLY IN THE 90'S, BUT MAPS ARE >65. PATIENT IS ON ROOM AIR WITH >90% SPO2. PATIENT REPORTS CHRONIC PAIN IN HER RIGHT SHOULDER AND HAS BEEN MANAGED PER MAR. D5% WITH 1/2 NS CONTINUOUSLY RUNNING AT 100ML/HR. Q6H CBG CHECKS AND PRN FOR S/S OF HYPOGLYCEMIA ARE ORDERED (SEE PRIOR NURSE NOTE). PATIENT HAS BEEN CHECKED MORE FREQUENTLY SINCE ARRIVAL FROM ER HER CBG'S HAVE BEEN BETWEEN 80;S-LOW 100'S, AND PATIENT HAS HAD NO PO INTAKE EXCEPT FOR SMALL SIPS OF WATER WITH PO MEDICATIONS. POTASSIUM LAB RESULTS FROM ER WAS 3.4 AND WAS REPLACED ONCE ON THE UNIT WITH IV POTASSIUM PER MAR, AND POTASSIUM LAB RESULTS THIS MORNING ARE 3.7. PATIENT IS CURRENTLY LAYING IN BED WITH CALL LIGHT IN REACH. PATIENT IS ABLE TO MAKE NEEDS KNOWN AND CALLS APPROPRIATELY.
[2025-01-07] MEDS ORDERED: Levothyroxine Sodium 0.15 MG Tab PO SCH (06:00)
[2025-01-07] MEDS ORDERED: Pantoprazole Sodium 40 MG Injection IV SCH (09:00)
[2025-01-07] MEDS ORDERED: Enoxaparin 40 MG/0.4 ML SYR SC SCH (09:00)
[2025-01-07 11:36] VITALS: BP 101/64
[2025-01-07] MEDS ORDERED: FentaNYL Citrate 50 MCG/ML 2 ML Injection IV ONE (13:35)
[2025-01-07 15:21] VITALS: BP 138/86
[2025-01-07] MEDS ORDERED: LORazepam 2 MG/ML 1ML Injection IV PRN (16:15)
--- NOTE | 2025-01-07 17:30 | NUR ---
PT SUMMARY; PT HAS BEEN HAVING BOUTS OF ABD SPASM PAINS PT REPORTED ON AND OFF PAINS, PT ALL OF A SUDDEN WILL SCREAM IN PAIN IN THE ROOM, PT WAS MEDICATED WITH IV FENTANYL, IV ANTIEMETICS AND ANTISPASMS, SEE EMAR FOR ADMINSITRATION TIMES. PT STILL CRIES IN PAIN, DR CM CALLED AND MADE AWARE GIT AN ORDER FOR IV ATIVAN AND PT HAS SLEPT SINCE THEN. FAMILY WAS AT THE BEDSIDE MOST OF THE SHIFT WAS GIVEN UPDATE REGARDING PT STATUS, BESTFRIEND AND BOYFRIENDS MOM, VITALS HAS BEEN STABLE. TRANSITIONED TO MEDICAL STATUS NO TELE. HAD ONE EMESIS EPISODE THIS AFTERNOON EMESIS ORANGE IN COLOR FROM JELLO AT LUNCH TIME. PT HAS BEEN WALKING TO THE BATHROOM ASSISTED, HAD A SHOWER THIS MORNING. PT NOW RESTING IN BED D5 1/2 NS STILL RUNNING AT 100MLS/HR. BLOOD SUGARS HAS BEEN STABLE. WILL REPORT TO ONCOMING SHIFT
[2025-01-07 19:53] VITALS: BP 139/89
[2025-01-08 00:29] VITALS: BP 99/69
[2025-01-08 04:30] VITALS: BP 118/83
--- NOTE | 2025-01-08 06:20 | NUR ---
SHIFT SUMMARY PT A&Ox4 AND COOPERATIVE OF CARE. PT MEDICATED PER EMAR FOR NAUSEA. NO C/O PAIN. CONTINUING TO INFUSE D5w1/2 NS AT 100ml/hr. BG ELEVATED BUT REMAINED BELOW 200. INSULIN GIVEN PER EMAR. VSS. BED IN LOWEST POSITION AND CALL LIGHT IN REACH.
[2025-01-08 08:05] VITALS: BP 117/79
[2025-01-08 15:09] VITALS: BP 118/77
--- NOTE | 2025-01-08 17:36 | NUR ---
PT TRANSFERRED TO 340. REPORT GIVEN TO MANDY BURGESS. NO ACUTE EVENTS FOR THE SHIFT VITALS REMAINED STABLE. PT HAD COUPLE EPISODES OF NAUSEA AND VOMITING MANAGED WITH ANTIEMETICS AND ATIVAN. ABD CT SCAN DONE TODAY SHOWED SOME MILD ENTERITIS, DR LARIOS CAME BY AND SAW PT TODAY, NO PLANS ON DOING SURGERY OF THIS TIME. D51/2NS CONTINUES TO INFUSE AT 100MLS/HR. SIGN WRITER HAND ABLE TO DISCUSS DIET PLAN WITH THE PT. PT STILL HAS POOR APPETITE FOR THE SHIFT, REMAINED ON CLEAR LIQUID DIET. PT ALSO REPORTED NOT HAVING REGULAR MENSTRUATION FOR THE LAST 5 MONTHS AND IS SEXUALLY ACTIVE WITH NO CONTRACEPTIVE RAISING CONCERN FOR POSSIBLE , BLOOD DERUM HCG TESTING DONE AND IS NEGATIVE. PT MADE AWARE OF THE RESULT. NO OTHER ISSUES ENCOUNTERED PT TRANSFERRED VIA WHEELCHAIR ALL BELONGINGS SENT WITH THE PT
[2025-01-08] MEDS ORDERED: NS 250 ML IV PRN (18:20)
[2025-01-08 19:41] VITALS: BP 123/88
--- NOTE | 2025-01-08 19:50 | NUR ---
SHIFT SUMMARY PT TRANSFERED FROM PCU TO ROOM 360 THIS SHIFT. PT NOTED TO TRANSFER FROM WHEELCHAIR ASSIST X1. PT IS A&OX4 BUT NOTED TO BE WITHDRAWN. PT LUNGS CLEAR, ABD HYPOACTIVE. PT NOTED TO CONT WITH CLEAR LIQUID DIET BUT NOTED TO HAVE POOR APPITATE AND REFUSED HER SUPPER TRAY. KAT DIETITIAN NOTED TO HAVE SPOKE WITH PT WHILE IN PCU. PT CONT TO HAVE PAIN AND NAUSEA MEDICATED PER EMAR SEE MAR FOR MORE DETAILS.
--- NOTE | 2025-01-09 03:57 | NUR ---
SHIFT SUMMARY: PT IS AOX4. PT WAS A PCU TRANSFER YESTERDAY DURING DAY SHIFT. PT HAS D5 WITH 1/2 NS RUNNING AT BEDSIDE CONT. PT HAS NO ACUTE CHANGES THIS SHIFT AND WAS MEDICATED PER EMAR FOR PAIN, NAUSEA AND ANXIETY. PT SLEPT MOST OF THE NIGHT.
[2025-01-09 04:22] VITALS: BP 105/73
[2025-01-09 04:54] LABS: BASOPHILS ABSOLUTE AUTO 0.09 K/mm3 (0.00-0.23); BASOPHILS PERCENT AUTO 1 % (0-2); EOSINOPHILS ABSOLUTE AUTO 0.52 K/mm3 (0.00-0.68); EOSINOPHILS PERCENT AUTO 7 % (0-6); Hematocrit 29.1 % (33.0-51.0); Hemoglobin 10.8 g/dL (11.5-16.0); IMMATURE GRAN ABSOLUTE AUTO 0.02 K/mm3 (0.00-0.10); IMMATURE GRAN PERCENT AUTO 0 % (0-1); LYMPHOCYTES ABSOLUTE AUTO 3.13 K/mm3 (0.84-5.20); LYMPHOCYTES PERCENT AUTO 41 % (21-46); MONOCYTES ABSOLUTE AUTO 0.59 K/mm3 (0.16-1.47); MONOCYTES PERCENT AUTO 8 % (4-13); Mean Corpuscular HGB Conc 37.1 g/dL (31.5-36.5); Mean Corpuscular Volume 85 fL (80-100); NEUTROPHILS ABSOLUTE AUTO 3.29 K/mm3 (1.96-9.15); NEUTROPHILS PERCENT AUTO 43 % (41-73); NRBC ABSOLUTE 0.00 K/mm3 (0.00-0.02); NRBC Auto 0.0 /100 WBC (0.0-0.2); Platelet Count 437 K/mm3 (150-400); RDW Coefficient Variation 12.5 % (11.7-14.2); RDW Standard Deviation 38.5 fL (35.1-46.3)
[2025-01-09 05:16] LABS: Alanine Aminotransfer (ALT/SGP 17.0 U/L (12-78); Albumin, Blood 2.7 g/dL (3.4-5.0); Albumin/Globulin Ratio 0.9 (0.8-1.8); Anion Gap 10.0 mmol/L (3-11); Aspartate Aminotrans (AST/SGOT 13.0 U/L (12-37); Bilirubin, Total 0.4 mg/dL (0.1-1.0); Blood Urea Nitrogen 1.0 mg/dL (8-24); CO2, Blood 26.0 mmol/L (21-32); Calcium, Blood 8.1 mg/dL (8.5-10.1); Chloride, Blood 103.0 mmol/L (98-108); Creatinine, Blood 0.5 mg/dL (0.40-1.00); Globulin, Blood 2.9 g/dL (2.2-4.0); Glucose, Blood 130.0 mg/dL (70-99); Magnesium, Blood 1.5 mg/dL (1.6-2.4); Phosphorus, Blood 3.4 mg/dL (2.5-4.9); Potassium, Blood 2.5 mmol/L (3.5-5.5); Sodium, Blood 136.0 mmol/L (136-145); Total Protein, Blood 5.6 g/dL (6.4-8.2)
[2025-01-09 07:35] VITALS: BP 105/73
[2025-01-09] MEDS ORDERED: Multivitamins-Minerals Liquid 15 ML Oral Syringe PO SCH (09:00)
[2025-01-09] MEDS ORDERED: Magnesium Sulf 2 GM/Water 50ML 50 ML IV STA (13:59)
[2025-01-09 15:45] VITALS: BP 116/80
--- NOTE | 2025-01-09 17:24 | NUR ---
SHIFT SUMMARY PT A&OX4 WITHDRAWN. C/O NAUSEA AND VOMITING. VOMITED UP MORNING ORAL MEDS AND REFUSED ALL OTHER ORAL MEDICATIONS. MEDICATED PER EMAR FOR NAUSEA AND ABD PAIN. D5 0.45%NS CONTINUOUS AT 100ML/HR, MAGNESIUM REPLACED PER ORDER. PT BARELY HAVING ORAL INTAKE. 1PA TO BATHROOM. CALLS APPROPRIATLY.
[2025-01-09 19:38] VITALS: BP 99/64
--- NOTE | 2025-01-09 21:05 | NUR ---
ALERTED PROVIDER (VANESA NICOLE) OF POTASSIUM OF 2.5 W/ NO REPLACEMENT RECEIVED DURING DAY SHIFT. NEW ORDER RECIEVED FOR STAT POTASSIUM AND MAG, THEN INFUSE 60 MEQ KCL AFTER LAB DRAWN.
--- NOTE | 2025-01-09 21:20 | NUR ---
CRITICAL VALUE NOTIFICATION; POTASSIUM DOWN TO 2.4. VANESA NICOLE MADE AWARE W/ NEW ORDER RECEIVED FOR ADDITIONAL 20 MEQ KCL INFUSION UPON COMPLETION OF CURRENT 60 MEQ KCL. RECHECK POTASSIUM LEVEL AT APPROX. 0630.
[2025-01-09 21:22] LABS: Magnesium, Blood 2.1 mg/dL (1.6-2.4)
[2025-01-09 21:31] LABS: Potassium, Blood 2.4 mmol/L (3.5-5.5)
[2025-01-09] MEDS ORDERED: Potassium Chl 20MEQ/Water100ML 100 ML IV ONE (22:30)
[2025-01-09] MEDS ORDERED: Ketorolac Tromethamine 15mg Vial IV PRN (23:55)
[2025-01-10 02:37] VITALS: BP 101/67
--- NOTE | 2025-01-10 04:09 | NUR ---
SHIFT SUMMARY PATIENT A/O X4, PLEASANT, AND BECOMES EMOTIONAL DUE TO PAIN. POTASSIUM BLOOD LEVEL FROM PREVIOUS SHIFT AT 2.5. NO POTASSIUM WAS ADDED TO EMAR, HOWEVER WAS IN CARE PLAN IN PROVIDER'S SUMMARY CARE PLAN NOTES. PHONE CALL MADE TO VANEAS NICOLE W/ ORDERS RECEIVED FOR STAT POTASSIUM AND MAG LEVELS, ALONG WITH STARTING PT ON 60 MEQ KCL. AFTER LABS WERE DRAWN, A CRITICAL RESULT FOR POTASSIUM WAS NOTED AT 2.4. VANESA COMPRESSOR MECHANIC WAS NOTIFIED. ONCE THE 60 MEQ KCL IS FINISHED, PT WILL BE STARTED ON 20 MEQ KCL, WITH ANOTHER LAB DRAW ONCE FINISHED. PT IS NOT ON TELE AT THIS TIME. CBGS REMAIN TO RANGE FROM 140S-130S AND PT CONTINUES TO EXPERIENCE NAUSEA AND NOT EATING. DECISION TO HOLD SCHEDULED INSULIN MADE. SCHEDULED REGLAN RECEIVED FOR TOLERABLE AFFECT. PT BECAME TEARFUL DUE TO PAIN IN HER ABD AND R SHOULDER. PT MEDICATED PER EMAR. VSS. CALL LIGHT W/IN REACH AND BED IN LOW POSITION.
[2025-01-10] MEDS ORDERED: Potassium Chl 20MEQ/Water100ML 100 ML IV ONE (04:30)
[2025-01-10 06:51] LABS: Magnesium, Blood 2.2 mg/dL (1.6-2.4)
[2025-01-10 06:52] LABS: Anion Gap 8.0 mmol/L (3-11); Blood Urea Nitrogen 1.0 mg/dL (8-24); CO2, Blood 26.0 mmol/L (21-32); Calcium, Blood 8.2 mg/dL (8.5-10.1); Chloride, Blood 107.0 mmol/L (98-108); Creatinine, Blood 0.54 mg/dL (0.40-1.00); Glucose, Blood 126.0 mg/dL (70-99); Phosphorus, Blood 3.1 mg/dL (2.5-4.9); Potassium, Blood 3.5 mmol/L (3.5-5.5); Sodium, Blood 137.0 mmol/L (136-145)
[2025-01-10 07:25] VITALS: BP 102/69
--- NOTE | 2025-01-10 08:38 | NUR ---
pt sobbing when entered her room this am, states her stomach hurts 9/10, wants iv meds, zofran given with good relief of nausea, gave 25mcg fentanyl, with good relief, pt calmed, reports pain down to 6/10 and states she's ok now, in to see her, will be putting her on iv nutrition, lungs are clear t/o, resp even and unlabored, no cough noted, on r/a, hrr, no edema noted to b/l le, ppp+2, cap refill<3 sec, vs stable, afebrile, power glide to jerry site is clear and patent, infusing d51/2 ns as ordered, piv to lac site is clear and patent, btx4, abd flat soft nontender, voids without diff, skin has bruisings otherwise c/w/d, neeru jaeger, call light in reach.
[2025-01-10] MEDS ORDERED: HYDROcodone 5-APAP 325 TAB PO PRN (08:55)
[2025-01-10] MEDS ORDERED: TPN Consult Notification XX ONE (09:20)
[2025-01-10] MEDS ORDERED: Insulin Human Lispro 100 Units/ML 3ML Syringe SC SCH (12:00)
[2025-01-10 16:26] VITALS: BP 106/77
[2025-01-10] MEDS ORDERED: Parenteral Electolytes 40 ML,Potassium Phosphate Dibasic 30 MM,Multivitamins 10 ML,ZINC... IV SCH ×2 (17:00)
--- NOTE | 2025-01-10 18:21 | NUR ---
pt has been painful throughout the day, started her on ppn, she is tolerating sipping on clears, no further changes this shift. call light in reach.
[2025-01-10 19:22] VITALS: BP 95/72
[2025-01-11 04:46] VITALS: BP 118/86
[2025-01-11 06:07] LABS: BASOPHILS ABSOLUTE AUTO 0.06 K/mm3 (0.00-0.23); BASOPHILS PERCENT AUTO 1 % (0-2); EOSINOPHILS ABSOLUTE AUTO 0.50 K/mm3 (0.00-0.68); EOSINOPHILS PERCENT AUTO 8 % (0-6); Hematocrit 29.0 % (33.0-51.0); Hemoglobin 10.1 g/dL (11.5-16.0); IMMATURE GRAN ABSOLUTE AUTO 0.02 K/mm3 (0.00-0.10); IMMATURE GRAN PERCENT AUTO 0 % (0-1); LYMPHOCYTES ABSOLUTE AUTO 2.93 K/mm3 (0.84-5.20); LYMPHOCYTES PERCENT AUTO 45 % (21-46); MONOCYTES ABSOLUTE AUTO 0.37 K/mm3 (0.16-1.47); MONOCYTES PERCENT AUTO 6 % (4-13); Mean Corpuscular HGB Conc 34.8 g/dL (31.5-36.5); Mean Corpuscular Volume 89 fL (80-100); NEUTROPHILS ABSOLUTE AUTO 2.58 K/mm3 (1.96-9.15); NEUTROPHILS PERCENT AUTO 40 % (41-73); NRBC ABSOLUTE 0.00 K/mm3 (0.00-0.02); NRBC Auto 0.0 /100 WBC (0.0-0.2); Platelet Count 375 K/mm3 (150-400); RDW Coefficient Variation 12.7 % (11.7-14.2); RDW Standard Deviation 41.6 fL (35.1-46.3)
[2025-01-11 06:29] LABS: Alanine Aminotransfer (ALT/SGP 17 U/L (12-78); Albumin, Blood 2.7 g/dL (3.4-5.0); Albumin/Globulin Ratio 0.9 (0.8-1.8); Anion Gap 7 mmol/L (3-11); Aspartate Aminotrans (AST/SGOT 16 U/L (12-37); Bilirubin, Total 0.3 mg/dL (0.1-1.0); Blood Urea Nitrogen 2 mg/dL (8-24); CO2, Blood 27 mmol/L (21-32); Calcium, Blood 8.3 mg/dL (8.5-10.1); Chloride, Blood 107 mmol/L (98-108); Creatinine, Blood 0.50 mg/dL (0.40-1.00); Globulin, Blood 2.9 g/dL (2.2-4.0); Glucose, Blood 97 mg/dL (70-99); Magnesium, Blood 2.0 mg/dL (1.6-2.4); Phosphorus, Blood 3.5 mg/dL (2.5-4.9); Potassium, Blood 3.3 mmol/L (3.5-5.5); Sodium, Blood 138 mmol/L (136-145); Total Protein, Blood 5.6 g/dL (6.4-8.2); Triglycerides 140 mg/dL (30-140)
--- NOTE | 2025-01-11 06:52 | NUR ---
SHIFT SUMMARY; PT A/OX4, AGGITATED THROUGHOUT THE NIGHT, HOWEVER COOPERATIVE WITH CARE. Q6H CBG PATIENT HAS DM2 AND INFUSING PPN. LONG ACTING AND SHORT ACTING INSULINS HELD DUE TO NO INDICATION PER SLIDING SCALE AND CBGS <120. PT MEDICATED WITH SCHEDULED REGLAN PER EMAR TO HELP MAINTAIN NAUSEA. VSS. CALL LIGHT WITHIN REACH AND BED IN LOW POSITION.
[2025-01-11 07:33] VITALS: BP 102/72
[2025-01-11] MEDS ORDERED: Norco 5-325 Ta1 EACH PO (11:35)
[2025-01-11] MEDS ORDERED: HYOS.125 PO (11:36)
[2025-01-11] MEDS ORDERED: METO5A PO (11:37)
--- NOTE | 2025-01-11 16:23 | NUR ---
SHIFT SUMMARY PATIENT ALERT AND INTERACTIVE. AMBULTAING IN ROOM INDEPENDENTLY. DISCHARGE PAPERWORK COMPLETED AND REVIEWED. [place] SCRIPT REVIEWED AND PLACED IN DISCHARGE FOLDER. PATIENT WAS TAKEN VIA WHEELCHAIR TO ENTRANCE TO MEET FAMILY.
== END 2025-01-11 13:30 | disposition home or self-care (01) | DRG 74 ==
LOC: ER 13:04 → PCU 13:05 → MEDS 01-07 16:13
PROVIDERS: Emergency Medicine; Family Medicine; Internal Medicine; Nurse Practitioner Acute Care; Student in an Organized Health Care Education/Training Program; ADMIT Internal Medicine
DX: E11.43 Type 2 diabetes mellitus with diabetic autonomic (poly)neuropathy (principal); E44.0 Moderate protein-calorie malnutrition; N39.0 Urinary tract infection, site not specified; E11.10 Type 2 diabetes mellitus with ketoacidosis without coma; F12.90 Cannabis use, unspecified, uncomplicated; E03.9 Hypothyroidism, unspecified; F31.9 Bipolar disorder, unspecified; F90.9 Attention-deficit hyperactivity disorder, unspecified type; E78.00 Pure hypercholesterolemia, unspecified; R94.31 Abnormal electrocardiogram [ECG] [EKG]; Z90.49 Acquired absence of other specified parts of digestive tract; T73.0XXA Starvation, initial encounter; F17.210 Nicotine dependence, cigarettes, uncomplicated; Z88.8 Allergy status to other drugs, medicaments and biological substances; Z79.899 Other long term (current) drug therapy; Z98.890 Other specified postprocedural states; Z79.890 Hormone replacement therapy; X58.XXXA Exposure to other specified factors, initial encounter; Z91.199 Patient's noncompliance with other medical treatment and regimen due to unspecified reason; E87.6 Hypokalemia; D64.9 Anemia, unspecified; F41.1 Generalized anxiety disorder; Z71.51 Drug abuse counseling and surveillance of drug abuser
CPT/HCPCS: 36415; 74160; 80048; 80053; 81001; 82010; 82803; 82947; 83036; 83735; 84100; 84132; 84439; 84443; 84478; 84703; 85025; 87086; 93005; 93010; 96365; 96367; 96375; 97162; 97165; 97530; 99285-25; A9270; G0378; J0696; J1630; J1650; J1815; J1885; J2060; J2405; J2470; J2765; J3010; J3411; J3475; J3480; J7030; J7040; J7042; J7050; Q9967

== ENCOUNTER 2025-01-13 13:44 | Emergency (ER) | payer OTHER ==
[~2025-01-13] VITALS: Ht 162.6 cm; Wt 61.7 kg
[~2025-01-13 13:44] MED LIST changes: +HYOS.125 PO; +METO5A PO; +Norco 5-325 Ta1 EACH PO
[2025-01-13 15:21] LABS: BASOPHILS ABSOLUTE AUTO 0.11 K/mm3 (0.00-0.23); BASOPHILS PERCENT AUTO 1 % (0-2); EOSINOPHILS ABSOLUTE AUTO 0.62 K/mm3 (0.00-0.68); EOSINOPHILS PERCENT AUTO 6 % (0-6); Hematocrit 36.7 % (33.0-51.0); Hemoglobin 12.7 g/dL (11.5-16.0); IMMATURE GRAN ABSOLUTE AUTO 0.03 K/mm3 (0.00-0.10); IMMATURE GRAN PERCENT AUTO 0 % (0-1); LYMPHOCYTES ABSOLUTE AUTO 3.67 K/mm3 (0.84-5.20); LYMPHOCYTES PERCENT AUTO 33 % (21-46); MONOCYTES ABSOLUTE AUTO 0.62 K/mm3 (0.16-1.47); MONOCYTES PERCENT AUTO 6 % (4-13); Mean Corpuscular HGB Conc 34.6 g/dL (31.5-36.5); Mean Corpuscular Volume 89 fL (80-100); NEUTROPHILS ABSOLUTE AUTO 6.20 K/mm3 (1.96-9.15); NEUTROPHILS PERCENT AUTO 55 % (41-73); NRBC ABSOLUTE 0.00 K/mm3 (0.00-0.02); NRBC Auto 0.0 /100 WBC (0.0-0.2); Platelet Count 548 K/mm3 (150-400); RDW Coefficient Variation 12.7 % (11.7-14.2); RDW Standard Deviation 41.1 fL (35.1-46.3)
[2025-01-13 15:29] LABS: pH Blood Venous 7.40 (7.34-7.37)
[2025-01-13 15:43] LABS: Alanine Aminotransfer (ALT/SGP 23.0 U/L (12-78); Albumin, Blood 3.4 g/dL (3.4-5.0); Albumin/Globulin Ratio 0.8 (0.8-1.8); Anion Gap 11.0 mmol/L (3-11); Aspartate Aminotrans (AST/SGOT 29.0 U/L (12-37); Bilirubin, Total 0.5 mg/dL (0.1-1.0); Blood Urea Nitrogen 6.0 mg/dL (8-24); CO2, Blood 26.0 mmol/L (21-32); Calcium, Blood 9.3 mg/dL (8.5-10.1); Chloride, Blood 98.0 mmol/L (98-108); Creatinine, Blood 0.57 mg/dL (0.40-1.00); Globulin, Blood 4.1 g/dL (2.2-4.0); Glucose, Blood 145.0 mg/dL (70-99); Potassium, Blood 3.2 mmol/L (3.5-5.5); Sodium, Blood 132.0 mmol/L (136-145); Total Protein, Blood 7.5 g/dL (6.4-8.2)
[2025-01-13] MEDS ORDERED: DiphenhydrAMINE HCl 50 MG/ML 1ML Vial IV ONE (16:50)
[2025-01-13] MEDS ORDERED: HYDROmorphone HCl/Pf 1MG SYR IV ONE ×2 (16:50→19:25)
[2025-01-13] MEDS ORDERED: NS 1,000 ML IV SCH (16:50)
[2025-01-13] MEDS ORDERED: Metoclopramide HCl 5MG / ML 2ML Vial IV ONE (16:50)
[2025-01-13 17:53] LABS: Beta HCG, Quantitative, Serum <1 mIU/mL (0-3)
[2025-01-13 19:07] LABS: Source, Urine Clean Catch
[2025-01-13 19:20] LABS: Bilirubin, Urine Neg (Neg); Color, Urine Yellow (P-Yellow); Glucose Qualitative, Urine Neg (Neg); Ketones, Urine 4+ (Neg); Leukocyte Esterase, Urine Neg (Neg); Protein, Urine 1+ (Neg); Specific Gravity, Urine 1.015 (1.003-1.022); Urobilinogen, Urine NORM (Normal)
[2025-01-13] MEDS ORDERED: RX Prepack 6 Tabs Oxycodone 5mg UD ONE (19:30)
[2025-01-13] MEDS ORDERED: Percocet 5-3251 EACH PO (19:36)
[2025-01-13] MEDS ORDERED: MIRT15ST PO (19:36)
[2025-01-13 20:00] VITALS: BP 100/71
== END 2025-01-13 20:34 | disposition home or self-care (01) ==
LOC: ER 13:44
PROVIDERS: Student in an Organized Health Care Education/Training Program
DX: E11.43 Type 2 diabetes mellitus with diabetic autonomic (poly)neuropathy (principal); K31.84 Gastroparesis; Z88.5 Allergy status to narcotic agent; Z79.899 Other long term (current) drug therapy; Z79.84 Long term (current) use of oral hypoglycemic drugs; I10 Essential (primary) hypertension; F17.210 Nicotine dependence, cigarettes, uncomplicated
CPT/HCPCS: 71046; 74177; 80053; 82803; 82947; 83690; 84484; 84702; 85025; 93005; 93010; 96361; 96374-59; 96375; 96376; 99284-25; A9270; J1171; J1200; J2765; J7030; Q9967

== ENCOUNTER 2025-01-16 11:35 | Emergency (ER) | payer OTHER ==
[~2025-01-16] VITALS: Ht 167.6 cm; Wt 65.8 kg
[~2025-01-16 11:35] MED LIST changes: +MIRT15ST PO; +Percocet 5-3251 EACH PO
[2025-01-16 11:54] VITALS: BP 108/79
[2025-01-16 12:19] LABS: BASOPHILS ABSOLUTE AUTO 0.14 K/mm3 (0.00-0.23); BASOPHILS PERCENT AUTO 1 % (0-2); EOSINOPHILS ABSOLUTE AUTO 0.65 K/mm3 (0.00-0.68); EOSINOPHILS PERCENT AUTO 5 % (0-6); Hematocrit 37.8 % (33.0-51.0); Hemoglobin 12.9 g/dL (11.5-16.0); IMMATURE GRAN ABSOLUTE AUTO 0.03 K/mm3 (0.00-0.10); IMMATURE GRAN PERCENT AUTO 0 % (0-1); LYMPHOCYTES ABSOLUTE AUTO 4.22 K/mm3 (0.84-5.20); LYMPHOCYTES PERCENT AUTO 33 % (21-46); MONOCYTES ABSOLUTE AUTO 0.79 K/mm3 (0.16-1.47); MONOCYTES PERCENT AUTO 6 % (4-13); Mean Corpuscular HGB Conc 34.1 g/dL (31.5-36.5); Mean Corpuscular Volume 90 fL (80-100); NEUTROPHILS ABSOLUTE AUTO 6.94 K/mm3 (1.96-9.15); NEUTROPHILS PERCENT AUTO 54 % (41-73); NRBC ABSOLUTE 0.00 K/mm3 (0.00-0.02); NRBC Auto 0.0 /100 WBC (0.0-0.2); Platelet Count 555 K/mm3 (150-400); RDW Coefficient Variation 13.1 % (11.7-14.2); RDW Standard Deviation 42.5 fL (35.1-46.3)
[2025-01-16 12:42] LABS: Alanine Aminotransfer (ALT/SGP 27.0 U/L (12-78); Albumin, Blood 3.7 g/dL (3.4-5.0); Albumin/Globulin Ratio 0.9 (0.8-1.8); Anion Gap 16.0 mmol/L (3-11); Aspartate Aminotrans (AST/SGOT 26.0 U/L (12-37); Bilirubin, Total 0.5 mg/dL (0.1-1.0); Blood Urea Nitrogen 8.0 mg/dL (8-24); CO2, Blood 18.0 mmol/L (21-32); Calcium, Blood 8.8 mg/dL (8.5-10.1); Chloride, Blood 102.0 mmol/L (98-108); Creatinine, Blood 0.51 mg/dL (0.40-1.00); Globulin, Blood 3.9 g/dL (2.2-4.0); Glucose, Blood 89.0 mg/dL (70-99); Potassium, Blood 3.2 mmol/L (3.5-5.5); Sodium, Blood 133.0 mmol/L (136-145); Total Protein, Blood 7.6 g/dL (6.4-8.2)
== END 2025-01-16 13:35 | disposition left against medical advice (07) ==
LOC: ER 11:35
PROVIDERS: Emergency Medicine
DX: R11.2 Nausea with vomiting, unspecified (principal); R07.9 Chest pain, unspecified; R06.02 Shortness of breath; Z53.21 Procedure and treatment not carried out due to patient leaving prior to being seen by health care provider
CPT/HCPCS: 80053; 85025

== ENCOUNTER 2025-01-24 13:29 | Emergency (ER) | payer OTHER ==
[~2025-01-24] VITALS: Ht 162.6 cm; Wt 66.7 kg
[~2025-01-24 13:29] MED LIST changes: -NARCAN4 M1; -PROP10 PO
[2025-01-24] MEDS ORDERED: NS 1,000 ML IV SCH (13:40)
[2025-01-24] MEDS ORDERED: MIRT15ST PO (15:28)
[2025-01-24] MEDS ORDERED: NARCAN4 M1 (15:28)
[2025-01-24] MEDS ORDERED: PROP10 PO (15:30)
[2025-01-24 16:12] VITALS: BP 91/67
== END 2025-01-24 16:34 | disposition home or self-care (01) ==
LOC: ER 13:29
PROVIDERS: Emergency Medicine
DX: I95.2 Hypotension due to drugs (principal); T44.7X5A Adverse effect of beta-adrenoreceptor antagonists, initial encounter; E03.9 Hypothyroidism, unspecified; I10 Essential (primary) hypertension; E78.00 Pure hypercholesterolemia, unspecified; E11.43 Type 2 diabetes mellitus with diabetic autonomic (poly)neuropathy; K31.84 Gastroparesis; F17.210 Nicotine dependence, cigarettes, uncomplicated; Z79.84 Long term (current) use of oral hypoglycemic drugs; Z79.890 Hormone replacement therapy; Z79.899 Other long term (current) drug therapy; Z88.5 Allergy status to narcotic agent
CPT/HCPCS: 80053; 82947; 84439; 84443; 84481; 85025; 93005; 93010; 99284-25

== ENCOUNTER → 2025-01-24 | Outpatient (CLI) | payer OTHER ==
[~2025-01-24] MED LIST changes: +NARCAN4 M1; +PROP10 PO
[2025-01-24 11:35] LABS: BASOPHILS ABSOLUTE AUTO 0.10 K/mm3 (0.00-0.23); BASOPHILS PERCENT AUTO 1 % (0-2); EOSINOPHILS ABSOLUTE AUTO 0.46 K/mm3 (0.00-0.68); EOSINOPHILS PERCENT AUTO 5 % (0-6); Hematocrit 32.4 % (33.0-51.0); Hemoglobin 10.9 g/dL (11.5-16.0); Mean Corpuscular HGB Conc 33.6 g/dL (31.5-36.5); Mean Corpuscular Volume 92 fL (80-100); NRBC ABSOLUTE 0.00 K/mm3 (0.00-0.02); NRBC Auto 0.0 /100 WBC (0.0-0.2); Platelet Count 509 K/mm3 (150-400); RDW Coefficient Variation 13.2 % (11.7-14.2); RDW Standard Deviation 43.5 fL (35.1-46.3)
[2025-01-24 11:36] LABS: IMMATURE GRAN ABSOLUTE AUTO 0.02 K/mm3 (0.00-0.10); IMMATURE GRAN PERCENT AUTO 0 % (0-1); LYMPHOCYTES ABSOLUTE AUTO 3.91 K/mm3 (0.84-5.20); LYMPHOCYTES PERCENT AUTO 40 % (21-46); MONOCYTES ABSOLUTE AUTO 0.56 K/mm3 (0.16-1.47); MONOCYTES PERCENT AUTO 6 % (4-13); NEUTROPHILS ABSOLUTE AUTO 4.63 K/mm3 (1.96-9.15); NEUTROPHILS PERCENT AUTO 48 % (41-73)
[2025-01-24 11:43] LABS: Alanine Aminotransfer (ALT/SGP 24.0 U/L (12-78); Albumin, Blood 3.0 g/dL (3.4-5.0); Albumin/Globulin Ratio 0.8 (0.8-1.8); Anion Gap 10.0 mmol/L (3-11); Aspartate Aminotrans (AST/SGOT 27.0 U/L (12-37); Bilirubin, Total 0.3 mg/dL (0.1-1.0); Blood Urea Nitrogen 11.0 mg/dL (8-24); CO2, Blood 30.0 mmol/L (21-32); Calcium, Blood 9.0 mg/dL (8.5-10.1); Chloride, Blood 103.0 mmol/L (98-108); Creatinine, Blood 0.66 mg/dL (0.40-1.00); Globulin, Blood 3.7 g/dL (2.2-4.0); Glucose, Blood 180.0 mg/dL (70-99); Potassium, Blood 4.1 mmol/L (3.5-5.5); Sodium, Blood 139.0 mmol/L (136-145); Total Protein, Blood 6.7 g/dL (6.4-8.2)
== END ==
LOC: LAB SHORT 11:28 → LAB 11:28
PROVIDERS: Physician Assistant
DX: E11.9 Type 2 diabetes mellitus without complications (principal); E03.9 Hypothyroidism, unspecified
CPT/HCPCS: 80053; 84443; 85025